=== PATIENT | male | born 1965 | race African-American/Black ===

== ENCOUNTER 2017-02-11 18:07 | Inpatient (IN) | payer SELFPAY ==
[~2017-02-11] VITALS: Ht 185.4 cm; Wt 63.6 kg
[~2017-02-11 18:07] MED LIST: HYDR25R PR
[2017-02-11 18:12] VITALS: BP 101/58; PULSE 106; RESP 20; TEMP 100.2; O2SAT 96
[2017-02-11 18:31] VITALS: BP 134/107; PULSE 97; RESP 22; O2SAT 98
[2017-02-11 18:44] VITALS: RESP 22; O2SAT 98
[2017-02-11 19:04] VITALS: BP 118/67; PULSE 94; RESP 18; O2SAT 100
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
[2017-02-11 19:49] LABS: AUTOMATED NEUTROPHIL # 9.6 TH/MM3 (1.8-7.7); BASOPHIL % 0.3 % (0.0-2.0); EOSINOPHIL # 0.1 TH/MM3 (0-0.4); EOSINOPHIL % 0.8 % (0.0-4.0); HEMATOCRIT 32.3 % (39.0-51.0); LYMPH % 12.8 % (9.0-44.0); LYMPHOCYTE # 1.6 TH/MM3 (1.0-4.8); MEAN CELL VOLUME 95.3 FL (80.0-100.0); MEAN CORPUSCULAR HEMOGLOBIN 31.8 PG (27.0-34.0); MEAN CORPUSCULAR HGB CONC 33.4 % (32.0-36.0); MONO % 8.8 % (0.0-8.0); NEUT % 77.3 % (16.0-70.0); PLATELET COUNT 530 TH/MM3 (150-450); RED BLOOD COUNT 3.39 MIL/MM3 (4.50-5.90); RED CELL DISTRIBUTION WIDTH 12.9 % (11.6-17.2); WHITE BLOOD COUNT 12.4 TH/MM3 (4.0-11.0)
[2017-02-11 19:50] LABS: HEMO FLAGS AUTO DIFF
[2017-02-11 20:14] LABS: BICARBONATE 25.4 MEQ/L (21.0-32.0); POTASSIUM 3.1 MEQ/L (3.5-5.1)
--- NOTE | 2017-02-11 20:40 | RADRPT ---
EXAM DATE/TIME: 02/11/2017 18:52 [facility] COMPARISON: No previous studies available for comparison. INDICATIONS : Chest pain for the past week. MEDICAL HISTORY : None. SURGICAL HISTORY : None. ENCOUNTER: Initial ACUITY: 1 week PAIN SCORE: 10/10 LOCATION: Bilateral chest FINDINGS: Areas of consolidation are noted involving the right upper lung and left mid and lower lung consisten t with probable pneumonia. Clinical correlation is recommended. Possible cavitation is noted within t he right upper lung field. The heart is normal. CONCLUSION: Areas of consolidation are noted involving the right upper lung and left mid and lower lung consisten t with probable pneumonia. Clinical correlation is recommended. Possible cavitation is noted within t he right upper lung field. El Thibodeaux MD on February 11, 2017 at 20:37 Board Certified Radiologist. This report was verified electronically.
[2017-02-11] MEDS ORDERED: PIPERACIL-TAZO 4.5 GM PREMIX 100 ML IV STA (20:42)
[2017-02-11] MEDS ORDERED: VANCOMYCIN INJ 1,000 MG in SODIUM CHLOR 0.9% 250 ML INJ 250 ML IV STA (20:42)
[2017-02-11] MEDS ORDERED: SODIUM CHLOR 0.9% 1000 ML INJ 1,000 ML IV ONE ×2 (20:45)
[2017-02-11] MEDS ORDERED: SODIUM CHLORIDE 0.9% FLUSH 10 ML FLUSH IV FLUSH PRN (21:15)
[2017-02-11] MEDS ORDERED: NALOXONE HCL 0.4 MG/ML AMP IV PUSH PRN (21:15)
[2017-02-11] MEDS ORDERED: OSELTAMIVIR PHOSPHATE 75 MG CAP PO ONE (21:15)
[2017-02-11] MEDS ORDERED: POTASSIUM CHLORIDE 20 MEQ PWD PACKET PO ONE (21:15)
[2017-02-11 21:18] LABS: BACTERIA, URINE RARE /hpf; BLOOD, URINE NEG (NEG); COMMENT (UR) CULT NOT INDICATED; CULTURE IF INDICATED CULT NOT INDICATED; GLUCOSE,URINE NEG (NEG); KETONE, URINE NEG (NEG); MUCUS URINE FEW /lpf (OCC); NITRITE,URINE NEG (NEG); SQUAMOUS EPITHELIAL CELL URINE <1 /hpf (0-5); URINE COLOR YELLOW (YELLW/STRAW)
[2017-02-11 21:22] LABS: BANDS 3 % (0-6); EOSINOPHILS 1 % (0-4); METAMYELOCYTES 1 % (0-1); MYELOCYTES 1 % (0-0); NEUTROPHIL # MANUAL DIFF 10.2 TH/MM3 (1.8-7.7); PLATELET ESTIMATE SMEAR HIGH (NORMAL); PLATELET MORPHOLOGY NORMAL (NORMAL); POLYS (SEG NEUTROPHILS) 77 % (16-70); SCAN/DIFF FINAL DIFF MANUAL; WBC DIFF SAMPLE 100
[2017-02-11 21:23] LABS: TOXIC GRANULATION 1+ (NORMAL); TOXIC VACUOLATION PRESENT (NONE SEEN)
--- NOTE | 2017-02-11 22:38 | EKG ---
Date Performed: 02/11/2017 Time Performed: 18:36:46 PTAGE: 51 years EKG: Sinus rhythm POSSIBLE LEFT ATRIAL ENLARGEMENT POSSIBLE LEFT VENTRICULAR HYPERTROPHY NONSPECIFIC T-WAVE ABNORMALIT Y ABNORMAL ECG NO PREVIOUS TRACING DOCTOR: Isabella Soria Interpretating Date/Time 02/11/2017 22:37:53
[2017-02-11 22:41] VITALS: O2SAT 98
[2017-02-11] MEDS: SODIUM CHLOR 0.9% 1000 ML INJ 1,000 ML IV SCH (22:41)
[2017-02-12] VITALS (9 sets, daily range): BP systolic 101–120; BP diastolic 56–78; PULSE 72–109; RESP 18–20; TEMP 97.8–100.3; O2SAT 92–97
[2017-02-12] MEDS: SODIUM CHLOR 0.9% 1000 ML INJ 1,000 ML IV SCH ×3 (01:00→21:14)
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
[2017-02-12] MEDS: ACETAMINOPHEN/HYDROcodone 325 MG/5 MG TAB PO PRN ×5 (02:11→21:14)
[2017-02-12] MEDS ORDERED: ACETAMINOPHEN 325 MG TAB PO PRN (04:15)
[2017-02-12 04:22] LABS: AUTOMATED NEUTROPHIL # 8.6 TH/MM3 (1.8-7.7); BASOPHIL % 0.2 % (0.0-2.0); EOSINOPHIL # 0.1 TH/MM3 (0-0.4); HEMATOCRIT 28.9 % (39.0-51.0); HEMO FLAGS DIFF FINAL; LYMPH % 11.9 % (9.0-44.0); LYMPHOCYTE # 1.4 TH/MM3 (1.0-4.8); MEAN CELL VOLUME 94.2 FL (80.0-100.0); MEAN CORPUSCULAR HEMOGLOBIN 33.3 PG (27.0-34.0); MEAN CORPUSCULAR HGB CONC 35.3 % (32.0-36.0); MONO % 10.9 % (0.0-8.0); PLATELET COUNT 467 TH/MM3 (150-450); RED BLOOD COUNT 3.07 MIL/MM3 (4.50-5.90); RED CELL DISTRIBUTION WIDTH 12.5 % (11.6-17.2); WHITE BLOOD COUNT 11.3 TH/MM3 (4.0-11.0)
[2017-02-12] MEDS ORDERED: LORazepam 2 MG/ML VIAL IV PUSH PRN (04:30)
[2017-02-12 04:33] LABS: BICARBONATE 23.5 MEQ/L (21.0-32.0)
[2017-02-12 04:45] LABS: CALCIUM-PROTEIN CORRECTED 7.8 MG/DL (8.5-10.1)
[2017-02-12] MEDS: SODIUM CHLORIDE 0.9% FLUSH 10 ML FLUSH IV FLUSH SCH ×2 (09:00→21:00)
[2017-02-12] MEDS: OSELTAMIVIR PHOSPHATE 75 MG CAP PO SCH ×2 (09:29→21:14)
--- NOTE | 2017-02-12 10:59 | HHI.PR ---
Subjective Remarks Follow-up for pneumonia, possible right lung cavitation. Patient is currently doing well. No fever or chills. He continues to have productive cough. Objective Vitals Vital Signs Date Time Temp Pulse Resp B/P (MAP) Pulse Ox O2 Delivery O2 Flow Rate FiO2 02/12/17 10:48 95 21 02/12/17 08:00 98.0 72 18 110/56 (74) 97 02/12/17 02:52 100.3 101 20 106/57 (73) 94 02/12/17 02:39 99.9 97 18 115/78 (90) 97 Nasal Cannula 02/12/17 00:34 98.9 100 18 106/59 (75) 96 Room Air 02/11/17 22:41 98 02/11/17 19:04 94 18 118/67 (84) 100 Room Air 02/11/17 18:44 22 98 Room Air 02/11/17 18:31 97 22 134/107 (116) 98 Room Air 02/11/17 18:31 96 22 98 Room Air 02/11/17 18:12 100.2 106 20 101/58 (72) 96 Room Air I/O 02/11/17 02/11/17 02/11/17 02/12/17 02/12/17 02/12/17 07:00 15:00 23:00 07:00 15:00 23:00 Intake Total 2100 ml 1250 ml 761 ml Output Total 710 ml Balance 2100 ml 1250 ml 51 ml Intake IV Total 2100 ml 1250 ml 761 ml Output Urine Total 710 ml # Voids 1 Result Diagram: 02/12/17 0350 02/12/17 0350 Imaging Last Impressions Chest X-Ray 02/11/17 1840 Signed Impressions: Service Date/Time: Saturday, February 11, 2017 18:52 - CONCLUSION: Areas of consolidation are noted involving the right upper lung and left mid and lower lung consistent with probable pneumonia. Clinical correlation is recommended. Possible cavitation is noted within the right upper lung field. El Thibodeaux MD Objective Remarks GENERAL: Alert, oriented 3, NAD. SKIN: Warm and dry. HEAD: Normocephalic. EYES: No scleral icterus. No injection or drainage. NECK: Supple, trachea midline. No JVD or lymphadenopathy. CARDIOVASCULAR: Regular rate and rhythm without murmurs, gallops, or rubs. RESPIRATORY: Moderate air entry. Diffuse coarse breath sounds. GASTROINTESTINAL: Abdomen soft, non-tender, nondistended. MUSCULOSKELETAL: No cyanosis, or edema. BACK: Nontender without obvious deformity. No CVA tenderness. Procedures None A/P Problem List: (1) Sepsis ICD Code: A41.9 - Sepsis, unspecified organism Status: Acute (2) Cavitary lesion of lung ICD Code: J98.4 - Other disorders of lung (3) Pneumonia ICD Code: J18.9 - Pneumonia, unspecified organism Assessment and Plan Mr. Fontaine is a 51-year-old male with no significant past medical history who presents to the emergency department on 02/12/2017 due to productive cough and pinkish phlegm production for about 1 week. He reported fever at home as well. Chest x-ray shows pneumonia as well as right lung cavitary lesion. - Bilateral pneumonia - Probable right lung cavitary lesion - Patient is currently on Zosyn and vancomycin. - Will add azithromycin by mouth for atypical coverage. - Sputum culture pending. TB Quatiferon test pending. - Continue isolation. - Will get CT chest with IV. TB PCR ordered. - Discussed with ID. - Influenza A positive - Continue Oseltamivir - D/C telemetry. Full code. Ambulation. SCDs. Problem Qualifiers (1) Sepsis: Qualified Codes: A41.9 - Sepsis, unspecified organism Miguel Preston DO Feb 12, 2017 10:59 am
--- NOTE | 2017-02-12 13:14 | PD.CONS ---
History of Present Illness Service Infectious disease Consult Requested By Dr Marques Gagnon Reason for Consult Evaluate patient with positive influenza testing, and cavitary pneumonia Primary Care Physician No Primary Care Physician Diagnoses: History of Present Illness Patient seen and examined. Records reviewed. Patient is a 51-year-old male, presented to the hospital complaining of 1-1/2 week history of cough, left-sided chest pain, and fever. He said he was bringing up initially some reddish phlegm, and now his phlegm is somewhat greenish color. He denies any significant shortness of breath. Denies any sore throat or ear pain. No nausea or vomiting or abdominal pain. He's got some body aches and some myalgias. Has not been around anyone sick. No exposure to birds. No exposure to any sick children. No recent travel. Since admission he has had fever. His chest x-ray showing bilateral infiltrates worse on the right with possible cavitary component. His influenza testing came back positive. Patient works doing [employer]. Patient was in [facility] for about 20 days and he was released in September. He stated that he's had previous TB skin testing that was negative. Denies any prior exposure to anyone with active tuberculosis. Rub in in person. Denies any IV drug use. Infectious disease consultation has been requested to evaluate the patient. Review of Systems Constitutional: COMPLAINS OF: Fever, Chills, Change in appetite, Night Sweats Eyes: DENIES: Eye pain Ears, nose, mouth, throat: DENIES: Nasal discharge, Oral lesions, Throat pain, Hoarseness, Ear Pain, Sinus Pain Respiratory: COMPLAINS OF: Cough, Sputum production, DENIES: Shortness of breath Cardiovascular: COMPLAINS OF: Chest pain, DENIES: Palpitations, Syncope, Dyspnea on Exertion Gastrointestinal: DENIES: Abdominal pain, Diarrhea, Nausea, Vomiting, Difficulty Swallowing Genitourinary: DENIES: Hematuria, Dysuria Musculoskeletal: COMPLAINS OF: Back pain, DENIES: Joint Swelling Integumentary: DENIES: Pruritus, Rash Hematologic/lymphatic: DENIES: Lymphadenopathy Immunologic/allergic: DENIES: Urticaria Neurologic: DENIES: Headache, Localized weakness Psychiatric: DENIES: Hallucinations Past Family Social History Allergies: Coded Allergies: No Known Allergies (Verified Allergy, Unknown, 02/11/17) 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 None Active Ordered Medications Current Medications Medications (Trade) Dose Ordered Sig/Carlos Eduardo Route Start Time Stop Time Status Last Admin (NS Flush) 2 ml UNSCH PRN IV FLUSH 02/11/17 21:15 (NS Flush) 2 ml BID IV FLUSH 02/12/17 09:00 02/12/17 09:00 (Narcan Inj) 0.4 mg UNSCH PRN IV PUSH 02/11/17 21:15 Sodium Chloride 1,000 ml @ 84 mls/hr [id number] IV 02/11/17 21:15 02/12/17 01:00 (Tamiflu) 75 mg BID PO 02/12/17 09:00 02/12/17 09:29 ([place] 5-325 Mg) 1 tab Q4H PRN PO 02/12/17 02:00 02/12/17 07:29 (Tylenol) 650 mg Q6HR PRN PO 02/12/17 04:15 (Ativan Inj) 1 mg Q4H PRN IV PUSH 02/12/17 04:30 Family History Hypertension Social History smokes about a pack a day drinks eoth about 5 beers a day, but has not drank since the pains started past one week but then stated last drink was 12 oclock yesterday marijuana denies iv da Physical Exam Vital Signs Vital Signs Date Time Temp Pulse Resp B/P (MAP) Pulse Ox O2 Delivery O2 Flow Rate FiO2 02/12/17 10:48 95 21 02/12/17 08:00 98.0 72 18 110/56 (74) 97 02/12/17 02:52 100.3 101 20 106/57 (73) 94 02/12/17 02:39 99.9 97 18 115/78 (90) 97 Nasal Cannula 02/12/17 00:34 98.9 100 18 106/59 (75) 96 Room Air 02/11/17 22:41 98 02/11/17 19:04 94 18 118/67 (84) 100 Room Air 02/11/17 18:44 22 98 Room Air 02/11/17 18:31 97 22 134/107 (116) 98 Room Air 02/11/17 18:31 96 22 98 Room Air 02/11/17 18:12 100.2 106 20 101/58 (72) 96 Room Air Physical Exam GENERAL: Patient is a thin, well-developed male, awake and alert, not in respiratory distress. SKIN: Warm and dry. No generalized rash, no ecchymoses and no evidence of embolic lesions. HEAD: Atraumatic. Normocephalic. No temporal wasting, or tenderness. EYES: [place] conjunctiva. No petechia or hemorrhage. Pupils equal, round and reactive to light. Extraocular movements full and intact. No scleral icterus. No injection or drainage. EARS, NOSE AND THROAT: Nose without bleeding or purulent nasal discharge. No sinus tenderness. Mucous membranes pink and moist. No oral lesions noted. No exudate. No oral thrush. Has poor dentition NECK: Trachea midline. Supple and not tender, no meningeal signs CARDIOVASCULAR: Regular rate and rhythm. No murmurs, rubs or gallops heard RESPIRATORY: Decreased breathe sounds whole R lung, rales, on L, no wheezing or rhonchi. ABDOMEN: Soft, flat, non-tender, nondistended. Bowel sounds present and normoactive. No guarding. No rebound. No organomegaly. EXTREMITIES: No clubbing, cyanosis, or edema.No joint effusion, has good ROM. No calf tenderness. Well perfused and warm. NEUROLOGICAL: Awake and alert. Cranial nerves grossly intact. Motor grossly within normal limits. PSYCHIATRIC: Normal affect, calm and cooperative. LINE: No evidence of infection Laboratory Laboratory Tests Test 02/11/17 19:00 02/11/17 20:55 02/12/17 03:50 White Blood Count 12.4 11.3 Red Blood Count 3.39 3.07 Hemoglobin 10.8 10.2 Hematocrit 32.3 28.9 Mean Corpuscular Volume 95.3 94.2 Mean Corpuscular Hemoglobin 31.8 33.3 Mean Corpuscular Hemoglobin Concent 33.4 35.3 Red Cell Distribution Width 12.9 12.5 Platelet Count 530 467 Mean Platelet Volume 8.4 8.4 Neutrophils (%) (Auto) 77.3 76.0 Lymphocytes (%) (Auto) 12.8 11.9 Monocytes (%) (Auto) 8.8 10.9 Eosinophils (%) (Auto) 0.8 1.0 Basophils (%) (Auto) 0.3 0.2 Neutrophils # (Auto) 9.6 8.6 Lymphocytes # (Auto) 1.6 1.4 Monocytes # (Auto) 1.1 1.2 Eosinophils # (Auto) 0.1 0.1 Basophils # (Auto) 0.0 0.0 CBC Comment AUTO DIFF DIFF FINAL Differential Total Cells Counted 100 Neutrophils % (Manual) 77 Band Neutrophils % 3 Lymphocytes % 9 Monocytes % 8 Eosinophils % 1 Neutrophils # (Manual) 10.2 Metamyelocytes 1 Myelocytes 1 Differential Comment FINAL DIFF MANUAL Toxic Granulation 1+ Toxic Vacuolation PRESENT Platelet Estimate HIGH Platelet Morphology Comment NORMAL Blood Urea Nitrogen 19 16 Creatinine 1.08 0.98 Random Glucose 105 100 Calcium Level 7.9 7.2 Sodium Level 124 129 Potassium Level 3.1 4.0 Chloride Level 88 98 Carbon Dioxide Level 25.4 23.5 Anion Gap 11 8 Estimat Glomerular Filtration Rate 87 98 Urine Color YELLOW Urine Turbidity CLEAR Urine pH 6.0 Urine Specific [place] 1.026 Urine Protein 30 Urine Glucose (UA) NEG Urine Ketones NEG Urine Occult Blood NEG Urine Nitrite NEG Urine Bilirubin NEG Urine Urobilinogen 2.0 Urine Leukocyte Esterase NEG Urine RBC 1 Urine WBC 3 Urine Squamous Epithelial Cells <1 Urine Bacteria RARE Urine Mucus FEW Microscopic Urinalysis Comment CULT NOT INDICATED Lactic Acid Level 1.2 Urine Opiates Screen NEG Urine Barbiturates Screen NEG Urine Amphetamines Screen NEG Urine Benzodiazepines Screen NEG Urine Cocaine Screen POS Urine Cannabinoids Screen POS Total Protein 6.0 Protein Corrected Calcium 7.8 Date/Time Source Procedure Growth Status 02/11/17 19:10 Blood Peripheral Aerobic Blood Culture - Preliminary NO GROWTH IN 1 DAY Resulted 02/11/17 19:10 Blood Peripheral Anaerobic Blood Culture - Preliminary NO GROWTH IN 1 DAY Resulted 02/12/17 10:30 Sputum Expectorated Sputum Gram Stain Pending Received 02/12/17 10:30 Sputum Expectorated Sputum Sputum Culture Pending Received 02/11/17 20:55 Urine Random Urine Legionella Antigen - Final PRESUMPTIVE NEGATIVE FOR LEGIONELLA P... Complete 02/11/17 20:55 Urine Random Urine Streptococcus pneumoniae Antigen (M - Final PRESUMPTIVE NEGATIVE FOR STREPTOCOCCU... Complete Result Diagram: 02/12/17 0350 02/12/17 0350 Imaging RADIOLOGY STUDIES/FILMS REVIEWED Last Impressions Chest X-Ray 02/11/17 1840 Signed Impressions: Service Date/Time: Saturday, February 11, 2017 18:52 - CONCLUSION: Areas of consolidation are noted involving the right upper lung and left mid and lower lung consistent with probable pneumonia. Clinical correlation is recommended. Possible cavitation is noted within the right upper lung field. El Thibodeaux MD Assessment and Plan Assessment and Plan IMPRESSION Influenza A (+) test, has fever, body aches and myalgia CAP, could have Staph aureus PNA post influenza - RUL location, concern with PTB - smoker, and drinks beer RECOMMENDATION 5 days Tamiflu Continue Zosyn Change Vanco to Zyvox Add Zithromax CT chest Sputum C/S Sputum for TB PCR Follow C/S Monitor progress HIV testing I will follow along with you Thank you for this consultation Discussed Condition With Explained plan to the patient D/W Dr Preston ([facility]AS) Irma Linn MD Feb 12, 2017 13:14
[2017-02-12] MEDS: AZITHROMYCIN 250 MG TAB PO SCH (14:23)
[2017-02-12] MEDS: PIPERACIL-TAZO 4.5 GM PREMIX 100 ML IV SCH ×2 (14:23→20:46)
[2017-02-12] MEDS: LINEZOLID 600 MG TAB PO SCH (20:46)
[2017-02-13] VITALS (7 sets, daily range): BP systolic 106–124; BP diastolic 56–72; PULSE 85–100; RESP 18; TEMP 98.4–99.2; O2SAT 92–98
[2017-02-13] MEDS: ACETAMINOPHEN/HYDROcodone 325 MG/5 MG TAB PO PRN ×6 (01:08→22:45)
[2017-02-13] MEDS ORDERED: IOHEXOL 350 MG/ML 10 ML VIAL (for RAD DIAG) IVCONTRAST ONE (02:08)
--- NOTE | 2017-02-13 02:14 | RADRPT ---
EXAM DATE/TIME: 02/13/2017 00:56 [facility] COMPARISON: CHEST SINGLE AP, February 11, 2017, 18:52. INDICATIONS : Shortness of breath.. Abnormal chest x-ray with bilateral areas of consolidation. There w as possible cavitation in the right upper lobe. IV CONTRAST: 75 cc Omnipaque 350 (iohexol) IV RADIATION DOSE: 3.39 CTDIvol (mGy) MEDICAL HISTORY : None SURGICAL HISTORY : None. ENCOUNTER: Initial ACUITY: 1 day PAIN SCALE: 5/10 LOCATION: Bilateral chest TECHNIQUE: Volumetric scanning of the chest was performed. Using automated exposure control and adjustment of t he mA and/or kV according to patient size, radiation dose was kept as low as reasonably achievable to obtain optimal diagnostic quality images. DICOM format image data is available electronically for review and comparison. Follow-up recommendations for detected pulmonary nodules are based at a minimum on nodule size and pa tient risk factors according to Fleischner Society Guidelines. FINDINGS: LUNGS: There is dense consolidation in the right upper and middle lobes with air bronchograms centrally and extending into the right middle lobe. There is a cavitary region in the right lung apex which measure s up to approximately 4.2 x 3.2 cm in diameter. There are additional areas of gas and/or cavitation n oted in the anterior lung apex as well as scattered in the areas of consolidation. There is also dens e consolidation in the left upper lobe and portions of the lingula. There is no cavitation in these r egions. There are several scattered noncalcified pulmonary nodules. The largest is in the right lower lobe on axial image #41 measures 2 x 1.8 cm. There are smaller nodular areas in the upper lobes. PLEURA: There are small bilateral pleural effusions. MEDIASTINUM: The heart and great vessels demonstrate no acute abnormality. There is no hilar lymphadenopathy. The re is no pericardial effusion. There is soft tissue prominence in the pretracheal region which is poo rly defined. There is a also abnormal masslike soft tissue in the anterior superior mediastinum this is best seen on axial image #29. AXILLAE: There is small bilateral axillary lymph nodes which are poorly defined and may be reactive. SKELETAL: Within normal limits for patient age. MISCELLANEOUS: The visualized upper abdominal organs demonstrate no acute abnormality. CONCLUSION: 1. Areas of dense consolidative opacity and infiltrate in both upper lobes, lingula and right middle lobe. There are areas of cavitation in the right upper lobe. Findings are nonspecific and could be se condary to pneumonia with areas of cavitation and necrosis. Fungal infection could have a similar chi earance. 2. Scattered noncalcified pulmonary nodules raising concern for possible metastatic disease with cavi tation. 3. Small bilateral pleural effusions. 4. Soft tissue prominence the pretracheal area and anterior superior mediastinum of concern for adeno ashley. which is not well-defined. Jesús Webb MD on February 13, 2017 at 2:04 Board Certified Radiologist. This report was verified electronically.
[2017-02-13] MEDS: PIPERACIL-TAZO 4.5 GM PREMIX 100 ML IV SCH ×3 (05:14→20:42)
--- NOTE | 2017-02-13 08:22 | HHI.PR ---
Subjective Remarks Follow-up for pneumonia, possible right lung cavitation. Patient is doing well. He continues to have chest pain and cough. No fever, chills. Ambulating well in the room. Currently on NC. Objective Vitals Vital Signs Date Time Temp Pulse Resp B/P (MAP) Pulse Ox O2 Delivery O2 Flow Rate FiO2 02/13/17 04:41 98.7 100 18 114/63 (80) 96 02/13/17 00:08 99.2 97 18 124/72 (89) 92 02/12/17 20:53 95 02/12/17 20:51 99.3 89 18 110/66 (81) 95 02/12/17 16:00 98.7 109 18 120/69 (86) 92 02/12/17 12:00 97.8 82 18 101/63 (76) 95 02/12/17 10:48 95 21 I/O 02/12/17 02/12/17 02/12/17 02/13/17 02/13/17 02/13/17 07:00 15:00 23:00 07:00 15:00 23:00 Intake Total 1250 ml 761 ml Output Total 710 ml Balance 1250 ml 51 ml Intake IV Total 1250 ml 761 ml Output Urine Total 710 ml # Voids 1 Result Diagram: 02/12/17 0350 02/12/17 0350 Imaging Last Impressions Chest CT 02/13/17 0000 Signed Impressions: Service Date/Time: February 00:56 - CONCLUSION: 1. Areas of dense consolidative opacity and infiltrate in both upper lobes, lingula and right middle lobe. There are areas of cavitation in the right upper lobe. Findings are nonspecific and could be secondary to pneumonia with areas of cavitation and necrosis. Fungal infection could have a similar appearance. 2. Scattered noncalcified pulmonary nodules raising concern for possible metastatic disease with cavitation. 3. Small bilateral pleural effusions. 4. Soft tissue prominence the pretracheal area and anterior superior mediastinum of concern for adenopathy. which is not well-defined. Jesús Webb MD Chest X-Ray 02/11/17 1840 Signed Impressions: Service Date/Time: Saturday, February 11, 2017 18:52 - CONCLUSION: Areas of consolidation are noted involving the right upper lung and left mid and lower lung consistent with probable pneumonia. Clinical correlation is recommended. Possible cavitation is noted within the right upper lung field. El Thibodeaux MD Objective Remarks GENERAL: Alert, oriented 3, NAD. SKIN: Warm and dry. HEAD: Normocephalic. EYES: No scleral icterus. No injection or drainage. NECK: Supple, trachea midline. No JVD or lymphadenopathy. CARDIOVASCULAR: Regular rate and rhythm without murmurs, gallops, or rubs. RESPIRATORY: Moderate air entry. Diffuse coarse breath sounds. Diminished breath sounds in both lung bethea. GASTROINTESTINAL: Abdomen soft, non-tender, nondistended. MUSCULOSKELETAL: No cyanosis, or edema. BACK: Nontender without obvious deformity. No CVA tenderness. Procedures None A/P Problem List: (1) Sepsis ICD Code: A41.9 - Sepsis, unspecified organism Status: Acute (2) Cavitary lesion of lung ICD Code: J98.4 - Other disorders of lung (3) Pneumonia ICD Code: J18.9 - Pneumonia, unspecified organism Assessment and Plan Mr. Fontaine is a 51-year-old male with no significant past medical history who presents to the emergency department on 02/12/2017 due to productive cough and pinkish phlegm production for about 1 week. He reported fever at home as well. Chest x-ray shows pneumonia as well as right lung cavitary lesion. - Bilateral pneumonia - Probable right lung cavitary lesion - Patient is currently on Zosyn and Linezolid and Azithromycin. - Continue isolation. - CT chest with IV shows dense consolidation in both lungs, cavitary lesion in the right lung. Images reviewed by me. - Follow sputum culture sensitivity, HIV screening test, TB PCR and Quantiferon test. - Influenza A positive - Continue Oseltamivir - Hyponatremia - Na 124 --> 129. Will check CBC, BMP in the AM. Full code. Ambulation. SCDs. Problem Qualifiers (1) Sepsis: Qualified Codes: A41.9 - Sepsis, unspecified organism Miguel Preston DO Feb 13, 2017 8:22 am
[2017-02-13] MEDS: OSELTAMIVIR PHOSPHATE 75 MG CAP PO SCH ×2 (09:00→20:43)
[2017-02-13] MEDS: LINEZOLID 600 MG TAB PO SCH ×2 (09:20→20:42)
[2017-02-13] MEDS: AZITHROMYCIN 250 MG TAB PO SCH (09:20)
--- NOTE | 2017-02-13 12:39 | HHI.IDPN ---
Subjective Subjective Remarks Patient is a 51-year-old male, presented to the hospital complaining of 1-1/2 week history of cough, left-sided chest pain, and fever. He said he was bringing up initially some reddish phlegm, and now his phlegm is somewhat greenish color. He denies any significant shortness of breath. Denies any sore throat or ear pain. No nausea or vomiting or abdominal pain. He's got some body aches and some myalgias. Has not been around anyone sick. No exposure to birds. No exposure to any sick children. No recent travel. Since admission he has had fever. His chest x-ray showing bilateral infiltrates worse on the right with possible cavitary component. His influenza testing came back positive. Patient works doing [employer]. Patient was in correction for about 20 days and he was released in September. He stated that he's had previous TB skin testing that was negative. Denies any prior exposure to anyone with active tuberculosis. Rub in in person. Denies any IV drug use. Infectious disease consultation has been requested to evaluate the patient. Notes reviewed Temps low grade Still with pain and cough CT chest noted HIV prelim (+), confirmatory pending Antibiotics Current medications Zosyn Zyvox Zithromax Tamiflu Medications (Trade) Dose Ordered Sig/Carlos Eduardo Route Start Time Stop Time Status Last Admin (NS Flush) 2 ml UNSCH PRN IV FLUSH 02/11/17 21:15 (NS Flush) 2 ml BID IV FLUSH 02/12/17 09:00 02/12/17 09:00 (Narcan Inj) 0.4 mg UNSCH PRN IV PUSH 02/11/17 21:15 Sodium Chloride 1,000 ml @ 84 mls/hr [id number] IV 02/11/17 21:15 02/12/17 09:10 (Tamiflu) 75 mg BID PO 02/12/17 09:00 02/13/17 09:00 ([place] 5-325 Mg) 1 tab Q4H PRN PO 02/12/17 02:00 02/13/17 10:06 (Tylenol) 650 mg Q6HR PRN PO 02/12/17 04:15 (Ativan Inj) 1 mg Q4H PRN IV PUSH 02/12/17 04:30 (Zithromax) 500 mg DAILY PO 02/12/17 14:00 02/13/17 09:20 (Zyvox) 600 mg Q12HR PO 02/12/17 21:00 02/13/17 09:20 Piperacillin Sod/ Tazobactam Sod 100 ml @ 200 mls/hr Q8H IV 02/12/17 14:00 02/13/17 05:14 Lines PIV Past Medical History Reviewed Allergies: Coded Allergies: No Known Allergies (Verified Allergy, Unknown, 02/11/17) Objective . Vital Signs Date Time Temp Pulse Resp B/P (MAP) Pulse Ox O2 Delivery O2 Flow Rate FiO2 02/13/17 09:02 98.5 91 18 112/56 (74) 96 02/13/17 04:41 98.7 100 18 114/63 (80) 96 02/13/17 00:08 99.2 97 18 124/72 (89) 92 02/12/17 20:53 95 02/12/17 20:51 99.3 89 18 110/66 (81) 95 02/12/17 16:00 98.7 109 18 120/69 (86) 92 . Laboratory Tests Test 02/11/17 19:00 02/12/17 03:50 White Blood Count 12.4 TH/MM3 11.3 TH/MM3 Red Blood Count 3.39 MIL/MM3 3.07 MIL/MM3 Hemoglobin 10.8 GM/DL 10.2 GM/DL Hematocrit 32.3 % 28.9 % Mean Corpuscular Volume 95.3 FL 94.2 FL Mean Corpuscular Hemoglobin 31.8 PG 33.3 PG Mean Corpuscular Hemoglobin Concent 33.4 % 35.3 % Red Cell Distribution Width 12.9 % 12.5 % Platelet Count 530 TH/MM3 467 TH/MM3 Mean Platelet Volume 8.4 FL 8.4 FL Neutrophils (%) (Auto) 77.3 % 76.0 % Lymphocytes (%) (Auto) 12.8 % 11.9 % Monocytes (%) (Auto) 8.8 % 10.9 % Eosinophils (%) (Auto) 0.8 % 1.0 % Basophils (%) (Auto) 0.3 % 0.2 % Neutrophils # (Auto) 9.6 TH/MM3 8.6 TH/MM3 Lymphocytes # (Auto) 1.6 TH/MM3 1.4 TH/MM3 Monocytes # (Auto) 1.1 TH/MM3 1.2 TH/MM3 Eosinophils # (Auto) 0.1 TH/MM3 0.1 TH/MM3 Basophils # (Auto) 0.0 TH/MM3 0.0 TH/MM3 CBC Comment AUTO DIFF DIFF FINAL Differential Total Cells Counted 100 Neutrophils % (Manual) 77 % Band Neutrophils % 3 % Lymphocytes % 9 % Monocytes % 8 % Eosinophils % 1 % Neutrophils # (Manual) 10.2 TH/MM3 Metamyelocytes 1 % Myelocytes 1 % Differential Comment FINAL DIFF MANUAL Toxic Granulation 1+ Toxic Vacuolation PRESENT Platelet Estimate HIGH Platelet Morphology Comment NORMAL Laboratory Tests Test 02/11/17 19:00 02/11/17 20:55 02/12/17 03:50 Blood Urea Nitrogen 19 MG/DL 16 MG/DL Creatinine 1.08 MG/DL 0.98 MG/DL Random Glucose 105 MG/DL 100 MG/DL Calcium Level 7.9 MG/DL 7.2 MG/DL Sodium Level 124 MEQ/L 129 MEQ/L Potassium Level 3.1 MEQ/L 4.0 MEQ/L Chloride Level 88 MEQ/L 98 MEQ/L Carbon Dioxide Level 25.4 MEQ/L 23.5 MEQ/L Anion Gap 11 MEQ/L 8 MEQ/L Estimat Glomerular Filtration Rate 87 ML/MIN 98 ML/MIN Lactic Acid Level 1.2 mmol/L Total Protein 6.0 GM/DL Protein Corrected Calcium 7.8 MG/DL Microbiology Date/Time Source Procedure Growth Status 02/11/17 19:10 Blood Peripheral Aerobic Blood Culture - Preliminary NO GROWTH IN 2 DAYS Resulted 02/11/17 19:10 Blood Peripheral Anaerobic Blood Culture - Preliminary NO GROWTH IN 2 DAYS Resulted 02/11/17 19:00 Blood Peripheral Aerobic Blood Culture - Preliminary NO GROWTH IN 2 DAYS Resulted 02/11/17 19:00 Blood Peripheral Anaerobic Blood Culture - Preliminary NO GROWTH IN 2 DAYS Resulted 02/12/17 10:30 Sputum Expectorated Sputum Gram Stain - Final Resulted 02/12/17 10:30 Sputum Expectorated Sputum Sputum Culture Pending Resulted 02/11/17 21:16 Throat Group A Streptococcus Screen - Preliminary NO BETA STREPTOCOCCI ISOLATED AT 24 H... Resulted 02/11/17 21:16 Throat Group A Streptococcus Screen (DEX) - Final Complete 02/11/17 19:00 Nasal Washing Influenza Types A,B Antigen (DEX) - Final Positive For Flu A Antigen Complete 02/11/17 20:55 Urine Random Urine Legionella Antigen - Final PRESUMPTIVE NEGATIVE FOR LEGIONELLA P... Complete 02/11/17 20:55 Urine Random Urine Streptococcus pneumoniae Antigen (M - Final PRESUMPTIVE NEGATIVE FOR STREPTOCOCCU... Complete Imaging Chest CT 02/13/17 0000 Signed Impressions: Service Date/Time: February 00:56 - CONCLUSION: 1. Areas of dense consolidative opacity and infiltrate in both upper lobes, lingula and right middle lobe. There are areas of cavitation in the right upper lobe. Findings are nonspecific and could be secondary to pneumonia with areas of cavitation and necrosis. Fungal infection could have a similar appearance. 2. Scattered noncalcified pulmonary nodules raising concern for possible metastatic disease with cavitation. 3. Small bilateral pleural effusions. 4. Soft tissue prominence the pretracheal area and anterior superior mediastinum of concern for adenopathy. which is not well-defined. Jesús Webb MD Chest X-Ray 02/11/17 1840 Signed Impressions: Service Date/Time: Saturday, February 11, 2017 18:52 - CONCLUSION: Areas of consolidation are noted involving the right upper lung and left mid and lower lung consistent with probable pneumonia. Clinical correlation is recommended. Possible cavitation is noted within the right upper lung field. El Thibodeaux MD Physical Exam GENERAL: awake and alert, not in respiratory distress. SKIN: Warm and dry. No generalized rash, no ecchymoses and no evidence of embolic lesions. HEAD: Atraumatic. Normocephalic. No temporal wasting, or tenderness. EYES: [place] conjunctiva. No petechia or hemorrhage. Pupils equal, round and reactive to light. Extraocular movements full and intact. No scleral icterus. EARS, NOSE AND THROAT: Nose without bleeding or purulent nasal discharge. No sinus tenderness. Mucous membranes pink and moist. No oral lesions noted. No exudate. No oral thrush. Has poor dentition NECK: Trachea midline. Supple and not tender, no meningeal signs CARDIOVASCULAR: Regular rate and rhythm. No murmurs, rubs or gallops heard RESPIRATORY: Decreased breathe sounds whole R lung, rales, on L, no wheezing or rhonchi. ABDOMEN: Soft, flat, non-tender, nondistended. Bowel sounds present and normoactive. No guarding. No rebound. No organomegaly. EXTREMITIES: No clubbing, cyanosis, or edema.No joint effusion, has good ROM. No calf tenderness. Well perfused and warm. NEUROLOGICAL: Awake and alert. Cranial nerves grossly intact. Motor grossly within normal limits. PSYCHIATRIC: Normal affect, calm and cooperative. LINE: No evidence of infection Assessment & Plan Remarks IMPRESSION Influenza A (+) test, has fever, body aches and myalgia CAP, could have Staph aureus PNA post influenza - RUL location, concern with PTB - smoker, and drinks beer Prelim HIV (+) - will inform of result once confirmatory result back RECOMMENDATION 5 days Tamiflu Continue Zosyn Continue Zyvox Continue Zithromax Follow C/S TB work-up Monitor progress Irma Linn MD Feb 13, 2017 12:39
[2017-02-13] MEDS: SODIUM CHLORIDE 0.9% FLUSH 10 ML FLUSH IV FLUSH SCH ×2 (20:49→22:44)
[2017-02-13] MEDS: SODIUM CHLOR 0.9% 1000 ML INJ 1,000 ML IV SCH (22:44)
[2017-02-14] VITALS (8 sets, daily range): BP systolic 102–127; BP diastolic 55–97; PULSE 78–118; RESP 17–22; TEMP 98–101.9; O2SAT 92–98
[2017-02-14] MEDS: ACETAMINOPHEN/HYDROcodone 325 MG/5 MG TAB PO PRN ×4 (05:06→20:23)
[2017-02-14] MEDS: PIPERACIL-TAZO 4.5 GM PREMIX 100 ML IV SCH ×2 (05:07→13:49)
[2017-02-14] MEDS: SODIUM CHLORIDE 0.9% FLUSH 10 ML FLUSH IV FLUSH SCH ×2 (09:00→20:23)
[2017-02-14] MEDS: LINEZOLID 600 MG TAB PO SCH ×2 (09:19→20:23)
[2017-02-14] MEDS: OSELTAMIVIR PHOSPHATE 75 MG CAP PO SCH ×2 (09:19→20:24)
[2017-02-14] MEDS: AZITHROMYCIN 250 MG TAB PO SCH (09:19)
[2017-02-14] MEDS: SODIUM CHLOR 0.9% 1000 ML INJ 1,000 ML IV SCH ×2 (11:40→20:23)
--- NOTE | 2017-02-14 13:41 | HHI.PR ---
Subjective Remarks Follow-up for pneumonia, right lung cavitation. Patient denies any fever or chills. He reports that his cough is also getting better. Objective Vitals Vital Signs Date Time Temp Pulse Resp B/P (MAP) Pulse Ox O2 Delivery O2 Flow Rate FiO2 02/14/17 12:00 98.3 78 18 112/60 (77) 93 02/14/17 10:37 95 21 02/14/17 08:00 98.1 87 18 102/59 (73) 95 02/14/17 04:00 101.9 118 17 127/67 (87) 92 02/14/17 00:00 98.8 103 22 103/55 (71) 92 02/13/17 21:55 93 02/13/17 20:00 98.4 93 18 118/59 (78) 95 02/13/17 16:00 98.9 85 18 114/57 (76) 98 I/O 02/13/17 02/13/17 02/13/17 02/14/17 02/14/17 02/14/17 07:00 15:00 23:00 07:00 15:00 23:00 Intake Total 1000 ml Output Total 700 ml 400 ml Balance -700 ml -400 ml 1000 ml Intake IV Total 1000 ml Output Urine Total 700 ml 400 ml Result Diagram: 02/12/17 0350 02/12/17 0350 Imaging Last Impressions Chest CT 02/13/17 0000 Signed Impressions: Service Date/Time: February 00:56 - CONCLUSION: 1. Areas of dense consolidative opacity and infiltrate in both upper lobes, lingula and right middle lobe. There are areas of cavitation in the right upper lobe. Findings are nonspecific and could be secondary to pneumonia with areas of cavitation and necrosis. Fungal infection could have a similar appearance. 2. Scattered noncalcified pulmonary nodules raising concern for possible metastatic disease with cavitation. 3. Small bilateral pleural effusions. 4. Soft tissue prominence the pretracheal area and anterior superior mediastinum of concern for adenopathy. which is not well-defined. Jesús Webb MD Chest X-Ray 02/11/17 1840 Signed Impressions: Service Date/Time: Saturday, February 11, 2017 18:52 - CONCLUSION: Areas of consolidation are noted involving the right upper lung and left mid and lower lung consistent with probable pneumonia. Clinical correlation is recommended. Possible cavitation is noted within the right upper lung field. El Thibodeaux MD Objective Remarks GENERAL: Alert, oriented 3, NAD. SKIN: Warm and dry. HEAD: Normocephalic. EYES: No scleral icterus. No injection or drainage. NECK: Supple, trachea midline. No JVD or lymphadenopathy. CARDIOVASCULAR: Regular rate and rhythm without murmurs, gallops, or rubs. RESPIRATORY: Moderate air entry. Diffuse coarse breath sounds. Diminished breath sounds in both lung bethea. GASTROINTESTINAL: Abdomen soft, non-tender, nondistended. MUSCULOSKELETAL: No cyanosis, or edema. BACK: Nontender without obvious deformity. No CVA tenderness. Procedures None A/P Problem List: (1) Sepsis ICD Code: A41.9 - Sepsis, unspecified organism Status: Acute (2) Cavitary lesion of lung ICD Code: J98.4 - Other disorders of lung (3) Pneumonia ICD Code: J18.9 - Pneumonia, unspecified organism Assessment and Plan Mr. Fontaine is a 51-year-old male with no significant past medical history who presents to the emergency department on 02/12/2017 due to productive cough and pinkish phlegm production for about 1 week. He reported fever at home as well. Chest x-ray shows pneumonia as well as right lung cavitary lesion. - Bilateral pneumonia - Probable right lung cavitary lesion - Patient is currently on Zosyn and Linezolid and Azithromycin. - Continue isolation. - CT chest with IV shows dense consolidation in both lungs, cavitary lesion in the right lung. - Follow sputum culture sensitivity, HIV screening test, TB PCR and Quantiferon test. - Discussed with microbiology on 02/14/2017. We'll send another sputum sample for MTB PCR. - If MTB PCR is negative, we can potential he treat patient's infection outpatient on oral antibiotics. - Influenza A positive - Continue Oseltamivir - Hyponatremia - Na 124 --> 129. Will check CBC, BMP in the AM. Full code. Ambulation. SCDs. Problem Qualifiers (1) Sepsis: Qualified Codes: A41.9 - Sepsis, unspecified organism Miguel Preston DO Feb 14, 2017 1:41 pm
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
[2017-02-14] MEDS ORDERED: FAMOTIDINE 20 MG TAB PO ONE (15:30)
[2017-02-14] MEDS: LEVOFLOXACIN 750 MG TAB PO SCH (15:47)
[2017-02-14 17:18] LABS: M. TUBERCULOSIS PCR NOT DETECTED (NOT DETECT)
[2017-02-14 19:28] LABS: MITOGEN MINUS NIL RESULT 0.09 IU/mL; NIL RESULT 0.03 IU/mL; QUANTIFERON TB GOLD RESULT Indeterminate (Negative)
[2017-02-14] MEDS: FAMOTIDINE 20 MG TAB PO SCH (20:23)
[2017-02-14 23:24] LABS: HIV 1 AB DIFFERENTIATION Positive (Negative); HIV 1/2 AG AND AB SCREEN Reactive (Negative); HIV 2 AB DIFFERENTIATION Negative (Negative)
[2017-02-15] VITALS (7 sets, daily range): BP systolic 112–125; BP diastolic 56–68; PULSE 87–107; RESP 19–24; TEMP 97.4–98.7; O2SAT 63–97
[2017-02-15] MEDS: ACETAMINOPHEN/HYDROcodone 325 MG/5 MG TAB PO PRN ×3 (00:48→22:48)
[2017-02-15] MEDS: SODIUM CHLOR 0.9% 1000 ML INJ 1,000 ML IV SCH ×2 (05:47→17:27)
[2017-02-15] MEDS: SODIUM CHLORIDE 0.9% FLUSH 10 ML FLUSH IV FLUSH SCH ×2 (08:06→22:49)
[2017-02-15] MEDS: NICOTINE 14 MG/24 HR PATCH T-DERMAL SCH (08:06)
[2017-02-15] MEDS: LINEZOLID 600 MG TAB PO SCH ×2 (08:06→22:48)
[2017-02-15] MEDS: REMOVE OLD PATCH T-DERMAL SCH (08:07)
[2017-02-15] MEDS: OSELTAMIVIR PHOSPHATE 75 MG CAP PO SCH ×2 (08:07→22:49)
[2017-02-15] MEDS: FAMOTIDINE 20 MG TAB PO SCH ×2 (08:07→22:47)
[2017-02-15] MEDS: LEVOFLOXACIN 750 MG TAB PO SCH (08:07)
[2017-02-15 08:57] LABS: AUTOMATED NEUTROPHIL # 9.6 TH/MM3 (1.8-7.7); BASOPHIL % 0.4 % (0.0-2.0); EOSINOPHIL # 0.1 TH/MM3 (0-0.4); EOSINOPHIL % 0.9 % (0.0-4.0); HEMO FLAGS DIFF FINAL; LYMPH % 12.1 % (9.0-44.0); LYMPHOCYTE # 1.4 TH/MM3 (1.0-4.8); MEAN CELL VOLUME 94.6 FL (80.0-100.0); MEAN CORPUSCULAR HEMOGLOBIN 31.8 PG (27.0-34.0); MEAN CORPUSCULAR HGB CONC 33.6 % (32.0-36.0); MONO % 6.6 % (0.0-8.0); PLATELET COUNT 478 TH/MM3 (150-450); RED BLOOD COUNT 3.17 MIL/MM3 (4.50-5.90); RED CELL DISTRIBUTION WIDTH 12.8 % (11.6-17.2)
[2017-02-15 09:32] LABS: BICARBONATE 26.1 MEQ/L (21.0-32.0); POTASSIUM 3.5 MEQ/L (3.5-5.1)
--- NOTE | 2017-02-15 14:16 | HHI.PR ---
Subjective Remarks Follow-up for pneumonia, right lung cavitation, HIV. Patient is currently doing well. He is not coughing as much. No fever or chills. Inquires about when he can go home. Objective Vitals Vital Signs Date Time Temp Pulse Resp B/P (MAP) Pulse Ox O2 Delivery O2 Flow Rate FiO2 02/15/17 12:00 97.4 87 21 114/67 (83) 97 02/15/17 09:23 89 02/15/17 08:00 98.6 92 22 116/68 (84) 95 02/15/17 06:21 98.7 90 21 114/56 (75) 96 02/15/17 00:00 98.2 101 24 112/63 (79) 63 02/15/17 00:00 105 02/14/17 20:00 89 02/14/17 20:00 98.1 82 17 117/69 (85) 98 02/14/17 18:19 97 21 02/14/17 16:00 98.0 81 18 118/97 (104) 97 I/O 02/14/17 02/14/17 02/14/17 02/15/17 02/15/17 02/15/17 07:00 15:00 23:00 07:00 15:00 23:00 Intake Total 1000 ml 1360 ml Output Total 400 ml 650 ml 200 ml Balance -400 ml 1000 ml -650 ml 1360 ml -200 ml Intake Oral 360 ml IV Total 1000 ml 1000 ml Output Urine Total 400 ml 650 ml 200 ml # Bowel Movements 1 0 Result Diagram: 02/15/17 0833 02/15/17 0833 Imaging Last Impressions Chest CT 02/13/17 0000 Signed Impressions: Service Date/Time: February 00:56 - CONCLUSION: 1. Areas of dense consolidative opacity and infiltrate in both upper lobes, lingula and right middle lobe. There are areas of cavitation in the right upper lobe. Findings are nonspecific and could be secondary to pneumonia with areas of cavitation and necrosis. Fungal infection could have a similar appearance. 2. Scattered noncalcified pulmonary nodules raising concern for possible metastatic disease with cavitation. 3. Small bilateral pleural effusions. 4. Soft tissue prominence the pretracheal area and anterior superior mediastinum of concern for adenopathy. which is not well-defined. Jesús Webb MD Chest X-Ray 02/11/17 2450 Signed Impressions: Service Date/Time: Saturday, February 11, 2017 18:52 - CONCLUSION: Areas of consolidation are noted involving the right upper lung and left mid and lower lung consistent with probable pneumonia. Clinical correlation is recommended. Possible cavitation is noted within the right upper lung field. El Thibodeaux MD Objective Remarks GENERAL: Alert, oriented 3, NAD. SKIN: Warm and dry. HEAD: Normocephalic. EYES: No scleral icterus. No injection or drainage. NECK: Supple, trachea midline. No JVD or lymphadenopathy. CARDIOVASCULAR: Regular rate and rhythm without murmurs, gallops, or rubs. RESPIRATORY: Moderate air entry. Diffuse coarse breath sounds. Diminished breath sounds in both lung bethea. GASTROINTESTINAL: Abdomen soft, non-tender, nondistended. MUSCULOSKELETAL: No cyanosis, or edema. BACK: Nontender without obvious deformity. No CVA tenderness. Procedures None A/P Problem List: (1) Sepsis ICD Code: A41.9 - Sepsis, unspecified organism Status: Acute (2) Cavitary lesion of lung ICD Code: J98.4 - Other disorders of lung (3) Pneumonia ICD Code: J18.9 - Pneumonia, unspecified organism Assessment and Plan Mr. Fontaine is a 51-year-old male with no significant past medical history who presents to the emergency department on 02/12/2017 due to productive cough and pinkish phlegm production for about 1 week. He reported fever at home as well. Chest x-ray shows pneumonia as well as right lung cavitary lesion. - Bilateral pneumonia - Probable right lung cavitary lesion - HIV-1 infection. - Patient is currently Levaquin and Zyvox - Continue isolation. MTB PCR is negative as well as negative Gram stain of AFB. If okay with infectious disease we can stop droplet precaution. - CT chest with IV shows dense consolidation in both lungs, cavitary lesion in the right lung. - MTB PCR negative, HIV-1 positive, AFB Gram stain negative. - CD4 count pending. - Influenza A positive - Continue Oseltamivir - Hyponatremia - Na 124 --> 129. Full code. Ambulation. SCDs. Problem Qualifiers (1) Sepsis: Qualified Codes: A41.9 - Sepsis, unspecified organism Miguel Preston DO Feb 15, 2017 2:16 pm
[2017-02-15] MEDS ORDERED: ZOLPIDEM TARTRATE 10 MG TAB PO PRN (21:15)
[2017-02-16 00:15] VITALS: BP 113/64; PULSE 97; RESP 18; TEMP 99; O2SAT 95
[2017-02-16] MEDS: SODIUM CHLOR 0.9% 1000 ML INJ 1,000 ML IV SCH (04:54)
[2017-02-16] MEDS: ACETAMINOPHEN/HYDROcodone 325 MG/5 MG TAB PO PRN (04:56)
[2017-02-16 05:19] VITALS: BP 115/68; PULSE 87; RESP 20; TEMP 98.1; O2SAT 97
[2017-02-16 08:00] VITALS: BP 112/64; PULSE 71; RESP 22; TEMP 98; O2SAT 97
[2017-02-16] MEDS: NICOTINE 14 MG/24 HR PATCH T-DERMAL SCH (09:00)
[2017-02-16] MEDS: OSELTAMIVIR PHOSPHATE 75 MG CAP PO SCH (09:00)
[2017-02-16] MEDS: SODIUM CHLORIDE 0.9% FLUSH 10 ML FLUSH IV FLUSH SCH (09:00)
[2017-02-16] MEDS: REMOVE OLD PATCH T-DERMAL SCH (09:00)
[2017-02-16] MEDS: LINEZOLID 600 MG TAB PO SCH (09:31)
[2017-02-16] MEDS: FAMOTIDINE 20 MG TAB PO SCH (09:33)
[2017-02-16] MEDS: LEVOFLOXACIN 750 MG TAB PO SCH (09:33)
[2017-02-16] MEDS ORDERED: LEVA750T9 PO (10:55)
[2017-02-16] MEDS ORDERED: ZYVO600T PO (10:55)
== END 2017-02-16 11:50 | disposition home or self-care (01) | DRG 871 ==
LOC: NEPC 18:07 → NEDA 21:16 → N05A 02-12 02:37
PROVIDERS: ADMIT Hospitalist; ATTEND Hospitalist
DX: A41.02 Sepsis due to Methicillin resistant Staphylococcus aureus (principal); J10.08 Influenza due to other identified influenza virus with other specified pneumonia; E87.1 Hypo-osmolality and hyponatremia; J98.4 Other disorders of lung; F17.210 Nicotine dependence, cigarettes, uncomplicated; E87.6 Hypokalemia; R75 Inconclusive laboratory evidence of human immunodeficiency virus [HIV]; M79.1 Myalgia; B95.62 Methicillin resistant Staphylococcus aureus infection as the cause of diseases classified elsewhere
CPT/HCPCS: 71010; 71260; 76937; 80048; 80307; 81001; 83605; 84155; 85007; 85025; 85027; 86403; 86480; 86701; 86702; 86703; 87015; 87040; 87070; 87081; 87116; 87147; 87186; 87205; 87206; 87449; 87556; 87798; 87804; 87880; 93005; 96374; J2543; J3370; J7030; J7050; Q9967

== ENCOUNTER 2017-02-19 11:03 | Inpatient (IN) | payer SELFPAY ==
[2017-02-19] VITALS (7 sets, daily range): BP systolic 110–134; BP diastolic 58–78; PULSE 73–105; RESP 16–20; TEMP 97.9–98.7; O2SAT 95–98
[~2017-02-19] VITALS: Ht 185.4 cm; Wt 65.1 kg
[~2017-02-19 11:03] MED LIST changes: -HYDR25R PR; +LEVA750T9 PO; +ZYVO600T PO
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
[2017-02-19 11:51] LABS: AUTOMATED NEUTROPHIL # 6.9 TH/MM3 (1.8-7.7); BASOPHIL # 0.1 TH/MM3 (0-0.2); BASOPHIL % 0.6 % (0.0-2.0); EOSINOPHIL # 0.1 TH/MM3 (0-0.4); EOSINOPHIL % 1.6 % (0.0-4.0); HEMATOCRIT 28.6 % (39.0-51.0); HEMO FLAGS DIFF FINAL; LYMPH % 18.6 % (9.0-44.0); LYMPHOCYTE # 1.7 TH/MM3 (1.0-4.8); MEAN CELL VOLUME 95.5 FL (80.0-100.0); MEAN CORPUSCULAR HEMOGLOBIN 33.1 PG (27.0-34.0); MEAN CORPUSCULAR HGB CONC 34.7 % (32.0-36.0); MONO % 5.9 % (0.0-8.0); NEUT % 73.3 % (16.0-70.0); PLATELET COUNT 473 TH/MM3 (150-450); RED CELL DISTRIBUTION WIDTH 12.4 % (11.6-17.2); WHITE BLOOD COUNT 9.4 TH/MM3 (4.0-11.0)
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
[2017-02-19 12:17] LABS: BICARBONATE 25.9 MEQ/L (21.0-32.0); MAGNESIUM 1.9 MG/DL (1.5-2.5); POTASSIUM 3.7 MEQ/L (3.5-5.1)
[2017-02-19] MEDS ORDERED: LEVOFLOXACIN 500 MG PREMIX INJ 100 ML IV ONE (12:45)
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
[2017-02-19] MEDS ORDERED: SODIUM CHLORIDE 0.9% FLUSH 10 ML FLUSH IV FLUSH PRN (13:15)
[2017-02-19] MEDS ORDERED: NALOXONE HCL 0.4 MG/ML AMP IV PUSH PRN (13:15)
[2017-02-19] MEDS ORDERED: LINEZOLID 600 MG PREMIX 300 ML IV SCH (13:15)
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
[2017-02-19] MEDS ORDERED: IOHEXOL 350 MG/ML 10 ML VIAL (for RAD DIAG) IVCONTRAST ONE (16:48)
--- NOTE | 2017-02-19 17:15 | RADRPT ---
EXAM DATE/TIME: 02/19/2017 16:46 [place] COMPARISON: No previous studies available for comparison. INDICATIONS : Short of breath, evaluate pneumonia. IV CONTRAST: 73 cc Omnipaque 350 (iohexol) IV RADIATION DOSE: 23.36 CTDIvol (mGy) MEDICAL HISTORY : None SURGICAL HISTORY : None. ENCOUNTER: Initial ACUITY: 1 day PAIN SCALE: 5/10 LOCATION: Bilateral chest TECHNIQUE: Volumetric scanning of the chest was performed using a pulmonary embolism protocol MIP images were re constructed. Using automated exposure control and adjustment of the mA and/or kV according to patien t size, radiation dose was kept as low as reasonably achievable to obtain optimal diagnostic quality images. DICOM format image data is available electronically for review and comparison. Follow-up recommendations for detected pulmonary nodules are based at a minimum on nodule size and pa tient risk factors according to Fleischner Society Guidelines. FINDINGS: PULMONARY ARTERIES: No filling defects are seen in the pulmonary arteries through the segmental level. LUNGS: Dense consolidating airspace disease identified in both lobes. There is near total consolidation of t he right upper lobe. Air bronchograms with peripheral dilatation of the bronchial tree is noted. Larg e cystic areas developing within the right apex measuring 3.6 cm. Significant septal thickening with small cysts are identified throughout the left upper lobe. Early peribronchial disease identified centrally within the right lower lobe. PLEURAE: There is no pleural thickening or pleural effusion. MEDIASTINUM: There is good visualization of the great vessels of the middle mediastinum. No evidence of mediastin al or hilar adenopathy/mass. MUSCULOSKELETAL: Within normal limits for patient age. MISCELLANEOUS: The visualized upper abdominal organs demonstrate no acute abnormality. CONCLUSION: 1. No evidence of pulmonary embolism 2. Extensive consolidating airspace disease in both upper lobes with underlying airway disease. 3. 3.6 cm cavity has developed within the right upper lobe. 4. Early peribronchial disease in the right lower lobe. Ramon Hooper MD on February 19, 2017 at 17:09 Board Certified Radiologist. This report was verified electronically.
[2017-02-19] MEDS ORDERED: LORazepam 2 MG TAB PO PRN (19:56)
[2017-02-19] MEDS ORDERED: LORazepam 1 MG TAB PO PRN (20:00)
[2017-02-19] MEDS ORDERED: FLUMAZENIL 0.5 MG/5 ML VIAL IV PUSH PRN (20:00)
[2017-02-19] MEDS ORDERED: ACETAMINOPHEN/HYDROcodone 325 MG/5 MG TAB PO PRN (20:15)
[2017-02-19] MEDS ORDERED: LORAZEPAM 2 MG/ML IV PRN ×3 (20:45→21:00)
[2017-02-19] MEDS: LINEZOLID 600 MG TAB PO SCH (21:28)
[2017-02-19] MEDS: SODIUM CHLORIDE 0.9% FLUSH 10 ML FLUSH IV FLUSH SCH (21:28)
[2017-02-20 03:42] LABS: C. DIFF EPI 027 PRESUMPTIVE NEGATIVE (NEGATIVE)
[2017-02-20 04:45] VITALS: PULSE 83
[2017-02-20 05:04] VITALS: BP 120/74; PULSE 80; RESP 16; TEMP 97.5; O2SAT 96
[2017-02-20 07:00] LABS: AUTOMATED NEUTROPHIL # 4.8 TH/MM3 (1.8-7.7); BASOPHIL % 0.6 % (0.0-2.0); EOSINOPHIL # 0.3 TH/MM3 (0-0.4); EOSINOPHIL % 3.9 % (0.0-4.0); HEMATOCRIT 26.8 % (39.0-51.0); HEMO FLAGS DIFF FINAL; LYMPH % 19.3 % (9.0-44.0); LYMPHOCYTE # 1.3 TH/MM3 (1.0-4.8); MEAN CELL VOLUME 95.2 FL (80.0-100.0); MEAN CORPUSCULAR HEMOGLOBIN 32.9 PG (27.0-34.0); MEAN CORPUSCULAR HGB CONC 34.6 % (32.0-36.0); MONO % 6.4 % (0.0-8.0); NEUT % 69.8 % (16.0-70.0); PLATELET COUNT 437 TH/MM3 (150-450); RED BLOOD COUNT 2.81 MIL/MM3 (4.50-5.90); RED CELL DISTRIBUTION WIDTH 12.8 % (11.6-17.2); WHITE BLOOD COUNT 6.9 TH/MM3 (4.0-11.0)
[2017-02-20 07:21] LABS: BICARBONATE 25.5 MEQ/L (21.0-32.0)
[2017-02-20 08:00] VITALS: BP 119/77; PULSE 68; RESP 20; TEMP 97.6; O2SAT 97
[2017-02-20] MEDS ORDERED: ENOXAPARIN SODIUM 60 MG/0.6 ML SYRINGE SQ SCH (09:00)
[2017-02-20] MEDS: THIAMINE HCL 100 MG TAB PO SCH (09:40)
[2017-02-20] MEDS: MULTIVITAMINS/MINERALS THERAPEUTIC TAB PO SCH (09:40)
[2017-02-20] MEDS: FOLIC ACID 1 MG TAB PO SCH (09:40)
[2017-02-20] MEDS: LINEZOLID 600 MG TAB PO SCH ×2 (09:40→20:56)
[2017-02-20] MEDS ORDERED: PNEUMOCOCCAL POLYVALENT INJ 25 MCG/0.5 ML SYR IM ONE (10:00)
[2017-02-20] MEDS ORDERED: INFLUENZA VIRUS VACCINE (QUADRIVALENT) 0.5 ML SYR IM ONE (10:00)
--- NOTE | 2017-02-20 11:57 | HHI.PR ---
Subjective Remarks Follow-up pneumonia, HIV. The patient states that he feels okay at this time. He does have chest pain associated with cough. He states that his cough is nonproductive. Objective Vitals Vital Signs Date Time Temp Pulse Resp B/P (MAP) Pulse Ox O2 Delivery O2 Flow Rate FiO2 02/20/17 08:00 97.6 68 20 119/77 (91) 97 02/20/17 05:04 97.5 80 16 120/74 (89) 96 02/20/17 04:45 83 02/20/17 04:00 Room Air 02/20/17 00:00 Room Air 02/19/17 23:51 73 02/19/17 20:52 77 02/19/17 20:00 98.7 89 16 116/58 (77) 97 02/19/17 20:00 Room Air 02/19/17 16:11 97.9 93 18 134/73 (93) 98 02/19/17 15:05 74 18 118/78 (91) 97 I/O 02/19/17 02/19/17 02/19/17 02/20/17 02/20/17 02/20/17 07:00 15:00 23:00 07:00 15:00 23:00 Intake Total 360 ml Balance 360 ml Intake Oral 360 ml # Voids 1 2 # Bowel Movements 1 Result Diagram: 02/20/17 0550 02/20/17 0550 Imaging Last Impressions Chest X-Ray 02/19/17 1131 Signed Impressions: Service Date/Time: Sunday, February 19, 2017 12:28 - CONCLUSION: Persistent bilateral airspace disease with no significant improvement. Ramon Hooper MD Lower Extremity Ultrasound 02/19/17 0000 Signed Impressions: Service Date/Time: Sunday, February 19, 2017 11:37 - CONCLUSION: 1. No evidence of deep venous thrombosis within the lower extremities. 2. Nonspecific bilateral inguinal lymphadenopathy. El Thibodeaux MD CT Angiography 02/19/17 0000 Signed Impressions: Service Date/Time: Sunday, February 19, 2017 16:46 - CONCLUSION: 1. No evidence of pulmonary embolism 2. Extensive consolidating airspace disease in both upper lobes with underlying airway disease. 3. 3.6 cm cavity has developed within the right upper lobe. 4. Early peribronchial disease in the right lower lobe. Ramon Hooper MD Objective Remarks General: No acute distress. Heart: Regular rate and rhythm. No murmur. Lungs: Clear to auscultation bilaterally. No wheezes, rales, or rhonchi. Breathing is nonlabored. Abdomen: Soft, nontender, nondistended. Extremities: Trace to 1+ bilateral lower extremity edema. Psych: Alert and oriented. Procedures None Urinary Catheter: No Vascular Central Line Catheter: No A/P Assessment and Plan 1. Pneumonia with right lung cavitary lesion: Patient was noncompliant with outpatient antibiotics. Infectious disease reconsult in. Antibiotics restarted. Supplemental oxygen as needed. 2. Bilateral lower extremity edema: Echocardiogram ordered. CTA shows no evidence of pulmonary embolus. Lower extremity ultrasound was negative for DVT. 3. DVT prophylaxis: Lovenox. Discharge Planning The patient will need assistance with antibiotics upon discharge. Case management to assist with discharge planning. Nick Fermin MD Feb 20, 2017 11:57
[2017-02-20 12:00] VITALS: BP 110/66; PULSE 79; RESP 20; TEMP 98.3; O2SAT 98
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
--- NOTE | 2017-02-20 13:59 | EKG ---
Date Performed: 02/19/2017 Time Performed: 12:25:42 PTAGE: 51 years EKG: Sinus rhythm POSSIBLE LEFT ATRIAL ENLARGEMENT POSSIBLE RIGHT VENTRICULAR CONDUCTION DELAY BORDERLINE ECG Compared to prior tracing no significant change PREVIOUS TRACING : 02/11/2017 18.36 DOCTOR: Suzanna Faust Interpretating Date/Time 02/20/2017 13:58:27
[2017-02-20 16:00] VITALS: BP 122/73; PULSE 81; RESP 20; TEMP 97.3; O2SAT 98
[2017-02-20] MEDS: DOXYCYCLINE HYCLATE 100 MG TAB PO SCH ×2 (16:02→20:56)
[2017-02-20] MEDS: LEVOFLOXACIN 750 MG PREMIX INJ 150 ML IV SCH (18:28)
[2017-02-20 20:00] VITALS: BP 115/58; PULSE 90; PULSE 95; RESP 19; TEMP 98; O2SAT 96
[2017-02-20] MEDS ORDERED: DEXT 5%-NACL 0.45% 1000 ML INJ 1,000 ML IV SCH (20:00)
[2017-02-20 20:25] LABS: BASOPHIL # 0.1 TH/MM3 (0-0.2); BASOPHIL % 1.2 % (0.0-2.0); EOSINOPHIL # 0.3 TH/MM3 (0-0.4); EOSINOPHIL % 4.2 % (0.0-4.0); HEMATOCRIT 26.1 % (39.0-51.0); HEMO FLAGS DIFF FINAL; LYMPH % 25.8 % (9.0-44.0); LYMPHOCYTE # 1.7 TH/MM3 (1.0-4.8); MEAN CELL VOLUME 94.5 FL (80.0-100.0); MEAN CORPUSCULAR HEMOGLOBIN 32.2 PG (27.0-34.0); MEAN CORPUSCULAR HGB CONC 34.1 % (32.0-36.0); MONO % 6.4 % (0.0-8.0); NEUT % 62.4 % (16.0-70.0); PLATELET COUNT 450 TH/MM3 (150-450); RED BLOOD COUNT 2.76 MIL/MM3 (4.50-5.90); RED CELL DISTRIBUTION WIDTH 12.7 % (11.6-17.2); WHITE BLOOD COUNT 6.4 TH/MM3 (4.0-11.0)
[2017-02-20 20:34] LABS: APTT (PATIENT) 29.6 SEC (24.3-30.1); PROTHROMBIN TIME - PATIENT 10.5 SEC (9.8-11.6)
[2017-02-20] MEDS: SODIUM CHLORIDE 0.9% FLUSH 10 ML FLUSH IV FLUSH SCH (20:55)
[2017-02-20] MEDS: SULFAMETHOXAZOLE-TRIMETHOPRIM DS 800-160 MG TAB PO SCH (20:56)
[2017-02-20] MEDS ORDERED: POVIDONE IODINE 5% (ANTISEPSIS KIT) 4 APPLICATIONS EACH NARE PRN (23:45)
[2017-02-20] MEDS ORDERED: LACTATED RINGER'S 1000 ML IV PRN (23:45)
[2017-02-20] MEDS ORDERED: CHLORHEXIDINE GLUCONATE 2 % 1 PACK (2 CLOTHS) TOPICAL PRN (23:45)
[2017-02-20] MEDS ORDERED: SODIUM CHLORID 0.9% 500 ML IV PRN (23:45)
[2017-02-20] MEDS: ZOLPIDEM TARTRATE 5 MG TAB PO PRN (23:47)
[2017-02-21] VITALS (8 sets, daily range): BP systolic 91–116; BP diastolic 55–73; PULSE 70–93; RESP 16–21; TEMP 97.8–98.4; O2SAT 94–99
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
[2017-02-21 08:03] LABS: TOTAL BILIRUBIN ADULT 0.1 MG/DL (0.2-1.0)
[2017-02-21] MEDS: SODIUM CHLORIDE 0.9% FLUSH 10 ML FLUSH IV FLUSH SCH ×2 (09:00→21:45)
--- NOTE | 2017-02-21 09:19 | HHI.IDPN ---
Subjective Subjective Remarks Patient is a 51-year-old male, who was recently hospitalized February 11 to February 16, and at that time he was found to have a bilateral pneumonia, as well as cavitary pneumonia in the right upper lobe. He tested influenza A+ at that time as well, and the sputum culture grew MRSA. QuantiFERON testing was indeterminate, and TB PCR came back negative. He also had a sputum for AFB that came back negative. He was having fever, cough, and left-sided pleuritic chest pain. Patient improved, and he was discharge on February 16. He was given Levaquin and Zyvox, but apparently the patient could not afford the medication, and never filled the prescription. He was given a coupon for $1 to be able to get the Zyvox, but the patient stated that none of the pharmacy could give it to him. His symptoms were actually improving, and his fevers improved. He is still coughing, but sputum production has improved. Denies any hemoptysis, and he still has some occasional pleuritic chest pain. Patient developed swelling in both lower extremity, so he presented back to the hospital for further evaluation and treatment. Patient has been afebrile. He had a CTA which did not show any pulmonary embolism, but did confirm the presence of bilateral infiltrates as well as the cavitary lesion. Rate was not compared to the CT of the chest done during his last admission. There was some measurements done, and the measurement on the most recent CT seems smaller compared to the measurements done on his first CAT scan. During the last admission, his HIV testing came back positive. Patient has been with the current girlfriend and the last 10 years, although he' s had other sexual partners. He denies any IV drug use. I spoke with the girlfriend, and she stated she was tested HIV negative several months ago. Infectious disease consultation has been requested to evaluate the patient. Notes reviewed Afebrile No new complaint Pulmonary evaluation noted Antibiotics Current Medications Doxycycline Bactrim Zyvox Medications (Trade) Dose Ordered Sig/Carlos Eduardo Route Start Time Stop Time Status Last Admin (NS Flush) 2 ml UNSCH PRN IV FLUSH 02/19/17 13:15 (NS Flush) 2 ml BID IV FLUSH 02/19/17 21:00 02/20/17 20:55 (Narcan Inj) 0.4 mg UNSCH PRN IV PUSH 02/19/17 13:15 Levofloxacin/ Dextrose 150 ml @ 100 mls/hr Q24H IV 02/20/17 18:00 02/20/17 18:28 (Zyvox) 600 mg Q12HR PO 02/19/17 21:00 02/20/17 20:56 (Folate) 1 mg DAILY PO 02/20/17 09:00 02/25/17 08:59 02/20/17 09:40 (Vitamin B1) 100 mg DAILY PO 02/20/17 09:00 02/20/17 09:40 (Theragran M Tab) 1 tab DAILY PO 02/20/17 09:00 02/25/17 08:59 02/20/17 09:40 (Romazicon Inj) 0.2 mg Q1M PRN IV PUSH 02/19/17 20:00 (Ativan) 1 mg Q4H PRN PO 02/19/17 20:00 (Ativan) 2 mg Q2H PRN PO 02/19/17 19:56 Non-Formulary Medication LORAZEPAM 2 MG IV Q 2 HO... Q2H PRN IV 02/19/17 21:00 Non-Formulary Medication LORAZEPAM 2 MG IV Q 1 HO... Q1H PRN IV 02/19/17 21:00 Non-Formulary Medication LORAZEPAM 2 MG IV Q 15 [place]... Q15M PRN IV 02/19/17 20:45 ([place] 5-325 Mg) 1 tab Q4H PRN PO 02/19/17 20:15 02/19/17 21:28 (Vibratab) 100 mg Q12HR PO 02/20/17 14:00 02/20/17 20:56 (Bactrim Ds 800-160 Mg) 1 tab Q12HR PO 02/20/17 21:00 02/20/17 20:56 Dextrose/Sodium Chloride 1,000 ml @ 0 mls/hr Q0M IV 02/20/17 20:00 02/20/17 21:00 (Ambien) 5 mg HS PRN PO 02/20/17 23:15 02/20/17 23:47 Lactated Ringer's 1,000 ml @ 30 mls/hr Q24H PRN IV 02/20/17 23:45 02/23/17 23:44 Sodium Chloride 500 ml @ 30 mls/hr [id number] PRN IV 02/20/17 23:45 02/23/17 23:44 (Betadine 5% Antisepsis Kit) 1 applic DINING ROOM CASHIER PRN EACH NARE 02/20/17 23:45 02/23/17 23:44 (Chlorhexidine 2% Cloth) 3 pack DINING ROOM CASHIER PRN TOPICAL 02/20/17 23:45 02/23/17 23:44 Lines PIV Past Medical History Newly Dx HIV Allergies: Coded Allergies: No Known Allergies (Verified Allergy, Unknown, 02/19/17) Objective . Vital Signs Date Time Temp Pulse Resp B/P (MAP) Pulse Ox O2 Delivery O2 Flow Rate FiO2 02/21/17 04:00 77 02/21/17 04:00 98.3 90 21 91/55 (67) 95 02/21/17 00:00 77 02/21/17 00:00 97.8 89 19 112/66 (81) 94 02/20/17 20:00 98.0 95 19 115/58 (77) 96 02/20/17 20:00 90 02/20/17 20:00 Room Air 02/20/17 16:00 97.3 81 20 122/73 (89) 98 02/20/17 12:00 98.3 79 20 110/66 (81) 98 . Laboratory Tests Test 02/19/17 11:35 02/20/17 05:50 02/20/17 19:54 White Blood Count 9.4 TH/MM3 6.9 TH/MM3 6.4 TH/MM3 Red Blood Count 3.00 MIL/MM3 2.81 MIL/MM3 2.76 MIL/MM3 Hemoglobin 9.9 GM/DL 9.3 GM/DL 8.9 GM/DL Hematocrit 28.6 % 26.8 % 26.1 % Mean Corpuscular Volume 95.5 FL 95.2 FL 94.5 FL Mean Corpuscular Hemoglobin 33.1 PG 32.9 PG 32.2 PG Mean Corpuscular Hemoglobin Concent 34.7 % 34.6 % 34.1 % Red Cell Distribution Width 12.4 % 12.8 % 12.7 % Platelet Count 473 TH/MM3 437 TH/MM3 450 TH/MM3 Mean Platelet Volume 6.8 FL 6.9 FL 6.9 FL Neutrophils (%) (Auto) 73.3 % 69.8 % 62.4 % Lymphocytes (%) (Auto) 18.6 % 19.3 % 25.8 % Monocytes (%) (Auto) 5.9 % 6.4 % 6.4 % Eosinophils (%) (Auto) 1.6 % 3.9 % 4.2 % Basophils (%) (Auto) 0.6 % 0.6 % 1.2 % Neutrophils # (Auto) 6.9 TH/MM3 4.8 TH/MM3 4.0 TH/MM3 Lymphocytes # (Auto) 1.7 TH/MM3 1.3 TH/MM3 1.7 TH/MM3 Monocytes # (Auto) 0.6 TH/MM3 0.4 TH/MM3 0.4 TH/MM3 Eosinophils # (Auto) 0.1 TH/MM3 0.3 TH/MM3 0.3 TH/MM3 Basophils # (Auto) 0.1 TH/MM3 0.0 TH/MM3 0.1 TH/MM3 CBC Comment DIFF FINAL DIFF FINAL DIFF FINAL Differential Comment Laboratory Tests Test 02/19/17 11:35 02/20/17 05:50 02/21/17 06:58 Blood Urea Nitrogen 5 MG/DL 6 MG/DL Creatinine 0.84 MG/DL 0.80 MG/DL Random Glucose 95 MG/DL 100 MG/DL Calcium Level 8.2 MG/DL 7.9 MG/DL Magnesium Level 1.9 MG/DL Sodium Level 134 MEQ/L 133 MEQ/L Potassium Level 3.7 MEQ/L 4.0 MEQ/L Chloride Level 100 MEQ/L 100 MEQ/L Carbon Dioxide Level 25.9 MEQ/L 25.5 MEQ/L Anion Gap 8 MEQ/L 8 MEQ/L Estimat Glomerular Filtration Rate 117 ML/MIN 124 ML/MIN B-Type Natriuretic Peptide 113 PG/ML Total Bilirubin 0.1 MG/DL Direct Bilirubin 0.1 MG/DL Indirect Bilirubin 0.0 MG/DL Aspartate Amino Transf (AST/SGOT) 50 U/L Alanine Aminotransferase (ALT/SGPT) 55 U/L Alkaline Phosphatase 72 U/L Total Protein 6.4 GM/DL Albumin 1.3 GM/DL Microbiology Date/Time Source Procedure Growth Status 02/19/17 11:35 Blood Peripheral Aerobic Blood Culture - Preliminary NO GROWTH IN 1 DAY Resulted 02/19/17 11:35 Blood Peripheral Anaerobic Blood Culture - Preliminary NO GROWTH IN 1 DAY Resulted 02/19/17 11:30 Blood Peripheral Aerobic Blood Culture - Preliminary NO GROWTH IN 1 DAY Resulted 02/19/17 11:30 Blood Peripheral Anaerobic Blood Culture - Preliminary NO GROWTH IN 1 DAY Resulted Imaging Last Impressions Chest X-Ray 02/19/17 1131 Signed Impressions: Service Date/Time: Sunday, February 19, 2017 12:28 - CONCLUSION: Persistent bilateral airspace disease with no significant improvement. Ramon Hooper MD Lower Extremity Ultrasound 02/19/17 0000 Signed Impressions: Service Date/Time: Sunday, February 19, 2017 11:37 - CONCLUSION: 1. No evidence of deep venous thrombosis within the lower extremities. 2. Nonspecific bilateral inguinal lymphadenopathy. El Thibodeaux MD CT Angiography 02/19/17 0000 Signed Impressions: Service Date/Time: Sunday, February 19, 2017 16:46 - CONCLUSION: 1. No evidence of pulmonary embolism 2. Extensive consolidating airspace disease in both upper lobes with underlying airway disease. 3. 3.6 cm cavity has developed within the right upper lobe. 4. Early peribronchial disease in the right lower lobe. Ramon Hooper MD Physical Exam GENERAL: Patient is a thin, well-developed male, awake and alert, not in respiratory distress. SKIN: Warm and dry. No generalized rash. HEAD: Atraumatic. Normocephalic. No temporal wasting, or tenderness. EYES: [place] conjunctiva. No petechia or hemorrhage. Pupils equal, round and reactive to light. Extraocular movements full and intact. No scleral icterus. No injection or drainage. EARS, NOSE AND THROAT: Nose without bleeding or purulent nasal discharge. No sinus tenderness. Mucous membranes pink and moist. No oral lesions noted. No exudate. No oral thrush. Has poor dentition NECK: Trachea midline. Supple and not tender, no meningeal signs CARDIOVASCULAR: Regular rate and rhythm. No murmurs, rubs or gallops heard RESPIRATORY: Decreased breath sounds bilaterally, no wheezing or rhonchi. Has decreased vocal fremitus both upper lung bethea ABDOMEN: Soft, flat, non-tender, mildly distended. Bowel sounds present and normoactive. No guarding. No rebound. No organomegaly. EXTREMITIES: No clubbing, cyanosis, or edema. No joint effusion, has good ROM. No calf tenderness. Well perfused and warm. NEUROLOGICAL: Awake and alert. Cranial nerves grossly intact. Motor grossly within normal limits. PSYCHIATRIC: Normal affect, calm and cooperative. LINE: No evidence of infection Assessment & Plan Remarks IMPRESSION Bilateral PNA, with cavitary component RUL - sputum (+) MRSA - ?post influenza MRSA PNA - TB testing have been negative - ?risks for unusual pathogens Newly Dx HIV, CD4 counts pending RECOMMENDATION Continue Zyvox for now - follow CBC Doxycycline and Bactrim for PNA - will use this on D/C to treat his cavitary PNA , and plan 4-6 weeks total - he will need to get assistance in obtaining these Abx and will need to ask CM to assist with obtaining Abx prior to D/C Check CD4 counts Pulmonary deciding on bronchoscopy Monitor progress Will determine course of Abx and timing for D/C Dr Rojas available if needed this Irma Linn MD Feb 21, 2017 09:19
[2017-02-21] MEDS ORDERED: DO NOT ADM ANY ANTICOAGULANT DRUGS PRN (12:22)
[2017-02-21] MEDS ORDERED: *morphine SULFATE 8 MG/ML PERIprocedure ONLY ONE (12:27)
[2017-02-21] MEDS ORDERED: *RESP: ALBUTEROL 2.5 MG/3 ML NEB (PRN) PERIprocedural Use ONLY NEB ONE (12:36)
[2017-02-21] MEDS ORDERED: RESP: ALBUTEROL 2.5 MG/3 ML NEB (PRN) NEB (12:45)
--- NOTE | 2017-02-21 13:00 | RADRPT ---
EXAM DATE/TIME: 02/21/2017 12:39 [facility] COMPARISON: CHEST SINGLE AP, February 19, 2017, 12:28. INDICATIONS : Post bronchoscopy, cough. MEDICAL HISTORY : None. SURGICAL HISTORY : None. ENCOUNTER: Subsequent ACUITY: 1 week PAIN SCORE: 0/10 LOCATION: Bilateral chest FINDINGS: No pneumothorax is noted. There is significant alveolar consolidation of the right upper lung field. There has been slight interval improvement of the left lung consolidation compared to previous examin ation with moderate residual consolidation in the left upper lung field. CONCLUSION: 1. No pneumothorax. 2. Some improved aeration of the left lung infiltrate with moderate residual consolidation in the lef t upper lung field. 3. Persistent alveolar consolidation of the right upper lung field. El Thibodeaux MD on February 21, 2017 at 12:56 Board Certified Radiologist. This report was verified electronically.
[2017-02-21] MEDS: SULFAMETHOXAZOLE-TRIMETHOPRIM DS 800-160 MG TAB PO SCH ×2 (14:13→21:45)
[2017-02-21] MEDS: LINEZOLID 600 MG TAB PO SCH ×2 (14:13→21:45)
[2017-02-21] MEDS: THIAMINE HCL 100 MG TAB PO SCH (14:13)
[2017-02-21] MEDS: FOLIC ACID 1 MG TAB PO SCH (14:13)
[2017-02-21] MEDS: MULTIVITAMINS/MINERALS THERAPEUTIC TAB PO SCH (14:13)
[2017-02-21] MEDS: DOXYCYCLINE HYCLATE 100 MG TAB PO SCH ×2 (14:13→21:45)
--- NOTE | 2017-02-21 14:16 | HHI.PR ---
Subjective Remarks Follow up pneumonia. Patient just returned from bronchoscopy. Some dyspnea, cough. No chest pain. Objective Vitals Vital Signs Date Time Temp Pulse Resp B/P (MAP) Pulse Ox O2 Delivery O2 Flow Rate FiO2 02/21/17 13:00 90 20 99/63 (75) 98 Nasal Cannula 2 02/21/17 12:45 95 26 103/66 (78) 100 Aerosol Mask 02/21/17 12:23 97.9 107 24 109/65 (80) 98 Nasal Cannula 4 02/21/17 08:01 98.3 71 16 116/73 (87) 98 02/21/17 04:00 77 02/21/17 04:00 98.3 90 21 91/55 (67) 95 02/21/17 00:00 77 02/21/17 00:00 97.8 89 19 112/66 (81) 94 02/20/17 20:00 98.0 95 19 115/58 (77) 96 02/20/17 20:00 90 02/20/17 20:00 Room Air 02/20/17 16:00 97.3 81 20 122/73 (89) 98 I/O 02/20/17 02/20/17 02/20/17 02/21/17 02/21/17 02/21/17 07:00 15:00 23:00 07:00 15:00 23:00 Intake Total 720 ml 0 ml 100 ml Balance 720 ml 0 ml 100 ml Intake Oral 720 ml 0 ml Other 100 ml # Voids 2 5 2 # Bowel Movements 1 0 1 Result Diagram: 02/20/17 19502/20/17 0550 Imaging Last Impressions Chest X-Ray 02/21/17 0000 Signed Impressions: Service Date/Time: Tuesday, February 21, 2017 12:39 - CONCLUSION: 1. No pneumothorax. 2. Some improved aeration of the left lung infiltrate with moderate residual consolidation in the left upper lung field. 3. Persistent alveolar consolidation of the right upper lung field. El Thibodeaux MD Lower Extremity Ultrasound 02/19/17 0000 Signed Impressions: Service Date/Time: Sunday, February 19, 2017 11:37 - CONCLUSION: 1. No evidence of deep venous thrombosis within the lower extremities. 2. Nonspecific bilateral inguinal lymphadenopathy. El Thibodeaux MD CT Angiography 02/19/17 0000 Signed Impressions: Service Date/Time: Sunday, February 19, 2017 16:46 - CONCLUSION: 1. No evidence of pulmonary embolism 2. Extensive consolidating airspace disease in both upper lobes with underlying airway disease. 3. 3.6 cm cavity has developed within the right upper lobe. 4. Early peribronchial disease in the right lower lobe. Ramon Hooper MD Objective Remarks General: No acute distress. Heart: Regular rate and rhythm. No murmur. Lungs: Clear to auscultation bilaterally. No wheezes, rales, or rhonchi. Breathing is nonlabored. Abdomen: Soft, nontender, nondistended. Extremities: Trace bilateral lower extremity edema. Psych: Alert and oriented. Procedures 02/21/17 bronchoscopy Urinary Catheter: No Vascular Central Line Catheter: No A/P Assessment and Plan 1. Pneumonia with right lung cavitary lesion: Patient was noncompliant with outpatient antibiotics. Infectious disease reconsult in. Antibiotics restarted. Supplemental oxygen as needed. Appreciate pulmonology recommendations. S/P bronchoscopy. 2. Bilateral lower extremity edema: Echocardiogram ordered. CTA shows no evidence of pulmonary embolus. Lower extremity ultrasound was negative for DVT. 3. DVT prophylaxis: Lovenox. Discharge Planning The patient will need assistance with antibiotics upon discharge. Case management to assist with discharge planning. Nick Fermin MD Feb 21, 2017 14:16
--- NOTE | 2017-02-21 14:46 | ECHRPT ---
Indication: CHF CONCLUSIONS Normal left ventricular size. Mild concentric left ventricular hypertrophy. The left ventricular systolic function is normal with an estimated ejection fraction in the range of 55-60%. Normal wall motion. The left atrial size is mildly dilated. Trace mitral valve regurgitation. There is trace tricuspid valve regurgitation. The estimated pulmonary arterial pressure is 37.2 mmHg. BP: 119 / 77 HR: 68 Rhythm: Sinus MEASUREMENTS (Male / Female) Normal Values Technical Quality:Fair 2D ECHO LV Diastolic Diameter PLAX 5.3 cm 4.2 - 5.9 / 3.9 - 5.3 cm LV Systolic Diameter PLAX 4.0 cm IVS Diastolic Thickness 1.0 cm 0.6 - 1.0 / 0.6 - 0.9 cm LVPW Diastolic Thickness 1.0 cm 0.6 - 1.0 / 0.6 - 0.9 cm LV Relative Wall Thickness 0.4 RV Internal Dim ED PLAX 3.0 cm LVOT Diameter 2.1 cm Aortic Root Diameter 3.3 cm LA Systolic Diameter LX 3.3 cm 3.0 - 4.0 / 2.7 - 3.8 cm M-MODE AV Cusp Separation MM 2.2 cm DOPPLER AV Peak Velocity 146.0 cm/s AV Peak Gradient 8.5 mmHg AV Mean Gradient 4.0 mmHg AV Velocity Time Integral 27.1 cm LVOT Peak Velocity 105.0 cm/s LVOT Peak Gradient 4.4 mmHg LVOT Velocity Time Integral 20.7 cm LVOT Cardiac Index 2610.5 cm/minm AV Area Cont Eq vti 2.6 cm AV Area Cont Eq pk 2.5 cm Mitral E Point Velocity 77.0 cm/s Mitral A Point Velocity 77.5 cm/s Mitral E to A Ratio 1.0 LV E' Lateral Velocity 19.6 cm/s Mitral E to LV E' Lateral Ratio 3.9 LV E' Septal Velocity 16.7 cm/s Mitral E to LV E' Septal Ratio 4.6 TR Peak Velocity 261.0 cm/s TR Peak Gradient 27.2 mmHg Right Atrial Pressure 10.0 mmHg Pulmonary Artery Systolic Pressu 37.2 mmHg Right Ventricular Systolic Press 37.2 mmHg PV Peak Velocity 77.5 cm/s PV Peak Gradient 2.4 mmHg FINDINGS LEFT VENTRICLE Normal left ventricular size. Mild concentric left ventricular hypertrophy. The left ventricular systolic function is normal with an estimated ejection fraction in the range of 55-60%. Normal wall motion. RIGHT VENTRICLE Normal right ventricular size and systolic function. LEFT ATRIUM The left atrial size is mildly dilated. RIGHT ATRIUM The right atrial size is normal. ATRIAL SEPTUM Normal atrial septal thickness without atrial level shunting by limited color doppler interrogation. AORTA The aortic root and proximal ascending aorta are normal in size on limited imaging. MITRAL VALVE Trace mitral valve regurgitation. AORTIC VALVE Trileaflet aortic valve. No aortic valve stenosis or regurgitation. TRICUSPID VALVE There is trace tricuspid valve regurgitation. The estimated pulmonary arterial pressure is 37.2 mmHg. PULMONARY VALVE Trivial pulmonary valve regurgitation. VESSELS The inferior vena cava is normal in size. PERICARDIUM No pericardial effusion. Sebastián Rosa MD (Electronically Signed) Final Date:21 February 2017 14:45
[2017-02-21] MEDS: LEVOFLOXACIN 750 MG PREMIX INJ 150 ML IV SCH (17:42)
--- NOTE | 2017-02-21 18:42 | MP ---
cc: Radha CUNNINGHAM M.D. DATE OF SURGERY 02/21/17 PROCEDURE Fiberoptic bronchoscopy with biopsy brushings and washings. PREOPERATIVE DIAGNOSIS Cavitary lung infiltrates. POSTOPERATIVE DIAGNOSIS Cavitary lung infiltrates. ANESTHESIA General SURGEON Dr. Lore Cunningham. PROCEDURE AND FINDINGS The patient was intubated under general anesthesia. Following this the Olympus IT 180 bronchoscope was used to visualize bronchi. The scope was then advanced via the endotracheal tube and the trachea and priscilla were visualized and they were normal. The scope was then advanced towards the right main stem and right upper lobe segmental bronchi. These bronchi demonstrated moderate endobronchitis with mucoid secretions and mucosal edema. Brushings were done from here for cytology and micro and biopsies were done from here as well. Mild bleeding was observed controlled with saline washings. Saline lavage was carried out. The scope was then advanced towards the right middle lobe segmental bronchi. These bronchi demonstrated mild endobronchitis with mucoid secretions and these were suctioned out. No endobronchial masses were seen. Next, the right lower lobe segmental bronchi were visualized which demonstrated mild endobronchitis with mucoid secretions. These were suctioned out and saline washings were done. The scope was then withdrawn. The scope was advanced towards the left main stem and left upper lobe segmental bronchi. These bronchi demonstrated mild endobronchitis and mucoid secretions, but no endobronchial lesions were seen. Next, the left lower lobe segmental bronchi were visualized which demonstrated mild endobronchitis with mucoid secretions and there were no endobronchial lesions seen here. Saline washings were done. The procedure was then terminated. The patient tolerated the procedure well. MD MICHAEL Giang/ /12:11 PM /6:36 PM
[2017-02-21] MEDS: ZOLPIDEM TARTRATE 5 MG TAB PO PRN (23:57)
[2017-02-22] VITALS (8 sets, daily range): BP systolic 107–123; BP diastolic 55–71; PULSE 71–110; RESP 16–20; TEMP 97.4–98.9; O2SAT 97–99
[2017-02-22] MEDS: LINEZOLID 600 MG TAB PO SCH ×2 (09:20→21:29)
[2017-02-22] MEDS: THIAMINE HCL 100 MG TAB PO SCH (09:21)
[2017-02-22] MEDS: DOXYCYCLINE HYCLATE 100 MG TAB PO SCH ×2 (09:21→21:29)
[2017-02-22] MEDS: MULTIVITAMINS/MINERALS THERAPEUTIC TAB PO SCH (09:21)
[2017-02-22] MEDS: SULFAMETHOXAZOLE-TRIMETHOPRIM DS 800-160 MG TAB PO SCH ×2 (09:21→21:29)
[2017-02-22] MEDS: FOLIC ACID 1 MG TAB PO SCH (09:21)
[2017-02-22] MEDS: SODIUM CHLORIDE 0.9% FLUSH 10 ML FLUSH IV FLUSH SCH ×2 (09:21→21:29)
[2017-02-22 09:22] LABS: AUTOMATED NEUTROPHIL # 2.2 TH/MM3 (1.8-7.7); BASOPHIL # 0.1 TH/MM3 (0-0.2); BASOPHIL % 1.3 % (0.0-2.0); EOSINOPHIL # 0.1 TH/MM3 (0-0.4); EOSINOPHIL % 1.9 % (0.0-4.0); HEMATOCRIT 49.7 % (39.0-51.0); HEMO FLAGS DIFF FINAL; LYMPH % 34.5 % (9.0-44.0); LYMPHOCYTE # 1.4 TH/MM3 (1.0-4.8); MEAN CELL VOLUME 97.1 FL (80.0-100.0); MEAN CORPUSCULAR HEMOGLOBIN 32.5 PG (27.0-34.0); MEAN CORPUSCULAR HGB CONC 33.4 % (32.0-36.0); MONO % 7.4 % (0.0-8.0); NEUT % 54.9 % (16.0-70.0); PLATELET COUNT 291 TH/MM3 (150-450); RED BLOOD COUNT 5.12 MIL/MM3 (4.50-5.90); RED CELL DISTRIBUTION WIDTH 13.4 % (11.6-17.2); WHITE BLOOD COUNT 4.1 TH/MM3 (4.0-11.0)
[2017-02-22 09:29] LABS: BICARBONATE 25.9 MEQ/L (21.0-32.0); POTASSIUM 4.4 MEQ/L (3.5-5.1)
[2017-02-22] MEDS ORDERED: PNEUMOCOCCAL POLYVALENT INJ 25 MCG/0.5 ML SYR IM ONE (13:00)
[2017-02-22] MEDS ORDERED: INFLUENZA VIRUS VACCINE (QUADRIVALENT) 0.5 ML SYR IM ONE (13:00)
--- NOTE | 2017-02-22 16:16 | HHI.PR ---
Subjective Remarks Follow-up pneumonia. Denies shortness of breath. Complains of sore throat after bronchoscopy. Discussed with RN Objective Vitals Vital Signs Date Time Temp Pulse Resp B/P (MAP) Pulse Ox O2 Delivery O2 Flow Rate FiO2 02/22/17 16:00 97.9 90 18 111/67 (82) 98 02/22/17 12:03 98.9 84 18 110/62 (78) 98 02/22/17 09:08 98 21 02/22/17 08:00 77 02/22/17 08:00 97.8 80 18 123/55 (77) 98 02/22/17 05:00 98 02/22/17 04:00 76 02/22/17 04:00 97.4 82 16 107/71 (83) 97 02/22/17 00:00 97.6 73 18 115/66 (82) 98 02/22/17 00:00 81 02/21/17 20:00 93 02/21/17 20:00 Room Air 02/21/17 20:00 98.3 85 18 112/61 (78) 96 I/O 02/21/17 02/21/17 02/21/17 02/22/17 02/22/17 02/22/17 07:00 15:00 23:00 07:00 15:00 23:00 Intake Total 0 ml 100 ml 280 ml Balance 0 ml 100 ml 280 ml Intake Oral 0 ml 280 ml Other 100 ml # Voids 2 6 3 # Bowel Movements 1 2 Result Diagram: 02/22/17 0836 02/22/17 0836 Imaging Last Impressions Chest X-Ray 02/21/17 0000 Signed Impressions: Service Date/Time: Tuesday, February 21, 2017 12:39 - CONCLUSION: 1. No pneumothorax. 2. Some improved aeration of the left lung infiltrate with moderate residual consolidation in the left upper lung field. 3. Persistent alveolar consolidation of the right upper lung field. El Thibodeaux MD Lower Extremity Ultrasound 02/19/17 0000 Signed Impressions: Service Date/Time: Sunday, February 19, 2017 11:37 - CONCLUSION: 1. No evidence of deep venous thrombosis within the lower extremities. 2. Nonspecific bilateral inguinal lymphadenopathy. El Thibodeaux MD CT Angiography 02/19/17 0000 Signed Impressions: Service Date/Time: Sunday, February 19, 2017 16:46 - CONCLUSION: 1. No evidence of pulmonary embolism 2. Extensive consolidating airspace disease in both upper lobes with underlying airway disease. 3. 3.6 cm cavity has developed within the right upper lobe. 4. Early peribronchial disease in the right lower lobe. Ramon Hooper MD Objective Remarks General: No acute distress. Skin: Warm and lesions Throat: Clear with no mass or lesions Heart: Regular rate and rhythm. No murmur. Lungs: Clear to auscultation bilaterally. No wheezes, rales, or rhonchi. Breathing is nonlabored. Abdomen: Soft, nontender, nondistended. Extremities: No cyanosis or edema Psych: Alert and oriented. Procedures 02/21/17 bronchoscopy A/P Problem List: (1) Pneumonia ICD Code: J18.9 - Pneumonia, unspecified organism (2) Cavitary lesion of lung ICD Code: J98.4 - Other disorders of lung Assessment and Plan 1. Pneumonia with right lung cavitary lesion: Patient was noncompliant with outpatient antibiotics. He was ruled out for tuberculosis during recent previous admission with negative TB PCR. Bronchoscopy with MRSA on culture continue Zyvox, doxycycline and Bactrim Infectious disease recommended to 4-6 weeks therapy with Bactrim and doxycycline. 2. HIV status. Follow-up CD4 count. [place] precautions discussed with patient and partner 3. Bilateral lower extremity edema: Echocardiogram with LVH ejection fraction 55%. CTA shows no evidence of pulmonary embolus. Lower extremity ultrasound was negative for DVT. 4. Throat discomfort status post bronchoscopy. Supportive treatment. If worse or he develops odynophagia we'll consult GI for EGD and start PPI DVT prophylaxis: SCD and early ambulation Discharge Planning Discharge when cleared by ID and pulmonary Problem Qualifiers (1) Pneumonia: Qualified Codes: J18.9 - Pneumonia, unspecified organism Oracio Austin MD Feb 22, 2017 16:16
[2017-02-22] MEDS ORDERED: PHENOL 1.4% SOLN 180 ML BTL MT PRN (16:30)
[2017-02-22] MEDS ORDERED: SULF1TAB23 PO (17:19)
[2017-02-22] MEDS ORDERED: ZYVO600T PO (17:19)
[2017-02-22] MEDS ORDERED: DOXY100T PO (17:19)
[2017-02-22] MEDS ORDERED: THIA100 PO (17:19)
--- NOTE | 2017-02-22 17:19 | HHI.DCPOC ---
Discharge Care Plan Diagnosis: (1) Cavitary lesion of lung (2) Pneumonia Your Health Problems Are: Difficulty with ADL Exercise Tolerance Goals to Promote Your Health * To prevent worsening of your condition and complications * To maintain your health at the optimal level Directions to Meet Your Goals Take your medications as prescribed Follow your dietary instruction Follow activity as directed Keep your appointments as scheduled Take your immunizations and boosters as scheduled If your symptoms worsen call your PCP, if no PCP go to Urgent Care Center or Emergency Room Smoking is Dangerous to Your Health. Avoid second hand smoke Call the 24-hour hour crisis hotline for domestic abuse at Oracio Austin MD Feb 22, 2017 17:19
[2017-02-22] MEDS: ZOLPIDEM TARTRATE 5 MG TAB PO PRN (21:29)
[2017-02-23] VITALS (10 sets, daily range): BP systolic 101–115; BP diastolic 53–67; PULSE 63–97; RESP 18–20; TEMP 97.6–98.7; O2SAT 95–99
[2017-02-23 07:40] LABS: MAGNESIUM 1.9 MG/DL (1.5-2.5); POTASSIUM 4.8 MEQ/L (3.5-5.1)
[2017-02-23] MEDS: DOXYCYCLINE HYCLATE 100 MG TAB PO SCH ×2 (08:45→22:11)
[2017-02-23] MEDS: FOLIC ACID 1 MG TAB PO SCH (08:45)
[2017-02-23] MEDS: THIAMINE HCL 100 MG TAB PO SCH (08:46)
[2017-02-23] MEDS: SULFAMETHOXAZOLE-TRIMETHOPRIM DS 800-160 MG TAB PO SCH ×2 (08:46→22:12)
[2017-02-23] MEDS: LINEZOLID 600 MG TAB PO SCH ×2 (08:46→22:11)
[2017-02-23] MEDS: MULTIVITAMINS/MINERALS THERAPEUTIC TAB PO SCH (08:46)
[2017-02-23] MEDS: SODIUM CHLORIDE 0.9% FLUSH 10 ML FLUSH IV FLUSH SCH ×2 (08:46→21:00)
--- NOTE | 2017-02-23 14:17 | HHI.PR ---
Subjective Remarks Follow-up pneumonia. He is doing okay tolerating room air. He wants to go home. Discussed with RN and case management Objective Vitals Vital Signs Date Time Temp Pulse Resp B/P (MAP) Pulse Ox O2 Delivery O2 Flow Rate FiO2 02/23/17 12:01 98.7 84 20 108/57 (74) 97 02/23/17 08:00 98.0 63 18 110/63 (79) 99 02/23/17 04:00 67 02/23/17 04:00 97.6 72 20 108/67 (81) 98 02/23/17 04:00 Room Air 02/23/17 00:00 Room Air 02/23/17 00:00 97.8 93 20 101/57 (72) 99 02/23/17 00:00 77 02/22/17 22:17 21 02/22/17 20:00 Room Air 02/22/17 20:00 97.8 71 20 113/65 (81) 99 02/22/17 20:00 90 02/22/17 16:00 97.9 90 18 111/67 (82) 98 02/22/17 16:00 110 I/O 02/22/17 02/22/17 02/22/17 02/23/17 02/23/17 02/23/17 07:00 15:00 23:00 07:00 15:00 23:00 Intake Total 720 ml 800 ml Balance 720 ml 800 ml Intake Oral 720 ml 800 ml # Voids 3 2 6 # Bowel Movements 1 Result Diagram: 02/22/17 0836 02/23/17 0600 Objective Remarks General: No acute distress. Skin: Warm and lesions Throat: Clear with no mass or lesions Heart: Regular rate and rhythm. No murmur. Lungs: Clear to auscultation bilaterally. No wheezes, rales, or rhonchi. Breathing is nonlabored. Abdomen: Soft, nontender, nondistended. Extremities: No cyanosis or edema Psych: Alert and oriented. No significant change in PE from previous Procedures 02/21/17 bronchoscopy A/P Problem List: (1) Pneumonia ICD Code: J18.9 - Pneumonia, unspecified organism (2) Cavitary lesion of lung ICD Code: J98.4 - Other disorders of lung Assessment and Plan 1. Pneumonia with right lung cavitary lesion: Patient was noncompliant with outpatient antibiotics. He was ruled out for tuberculosis during recent previous admission with negative TB PCR. Bronchoscopy with MRSA on culture continue Zyvox, doxycycline and Bactrim Infectious disease recommended to 4-6 weeks therapy with Bactrim and doxycycline. Discussed with case management 2. HIV status. Follow-up CD4 count. [place] precautions discussed with patient and partner 3. Bilateral lower extremity edema: Echocardiogram with LVH ejection fraction 55%. CTA shows no evidence of pulmonary embolus. Lower extremity ultrasound was negative for DVT. 4. Throat discomfort status post bronchoscopy. Supportive treatment. If worse or he develops odynophagia we'll consult GI for EGD and start PPI . This is resolved DVT prophylaxis: SCD and early ambulation Discharge Planning Discharge when cleared by ID and pulmonary Problem Qualifiers (1) Pneumonia: Qualified Codes: J18.9 - Pneumonia, unspecified organism Oracio Austin MD Feb 23, 2017 14:17
[2017-02-23] MEDS: ZOLPIDEM TARTRATE 5 MG TAB PO PRN (22:15)
[2017-02-23 23:52] LABS: CD4/CD8 RATIO 0.3 (0.86-5.00)
[2017-02-24] VITALS: BP 105/61; PULSE 85; RESP 17; TEMP 98; O2SAT 97
[2017-02-24 04:00] VITALS: BP 101/60; PULSE 80; RESP 17; TEMP 98.1; O2SAT 97
[2017-02-24 08:00] VITALS: BP 103/56; PULSE 74; PULSE 85; RESP 20; TEMP 97.4; O2SAT 98
[2017-02-24] MEDS: MULTIVITAMINS/MINERALS THERAPEUTIC TAB PO SCH (09:21)
[2017-02-24] MEDS: FOLIC ACID 1 MG TAB PO SCH (09:21)
[2017-02-24] MEDS: SULFAMETHOXAZOLE-TRIMETHOPRIM DS 800-160 MG TAB PO SCH (09:21)
[2017-02-24] MEDS: THIAMINE HCL 100 MG TAB PO SCH (09:21)
[2017-02-24] MEDS: LINEZOLID 600 MG TAB PO SCH (09:21)
[2017-02-24] MEDS: DOXYCYCLINE HYCLATE 100 MG TAB PO SCH (09:21)
--- NOTE | 2017-02-24 09:31 | HHI.IDPN ---
Subjective Subjective Remarks Patient is a 51-year-old male, who was recently hospitalized February 11 to February 16, and at that time he was found to have a bilateral pneumonia, as well as cavitary pneumonia in the right upper lobe. He tested influenza A+ at that time as well, and the sputum culture grew MRSA. QuantiFERON testing was indeterminate, and TB PCR came back negative. He also had a sputum for AFB that came back negative. He was having fever, cough, and left-sided pleuritic chest pain. Patient improved, and he was discharge on February 16. He was given Levaquin and Zyvox, but apparently the patient could not afford the medication, and never filled the prescription. He was given a coupon for $1 to be able to get the Zyvox, but the patient stated that none of the pharmacy could give it to him. His symptoms were actually improving, and his fevers improved. He is still coughing, but sputum production has improved. Denies any hemoptysis, and he still has some occasional pleuritic chest pain. Patient developed swelling in both lower extremity, so he presented back to the hospital for further evaluation and treatment. Patient has been afebrile. He had a CTA which did not show any pulmonary embolism, but did confirm the presence of bilateral infiltrates as well as the cavitary lesion. Rate was not compared to the CT of the chest done during his last admission. There was some measurements done, and the measurement on the most recent CT seems smaller compared to the measurements done on his first CAT scan. During the last admission, his HIV testing came back positive. Patient has been with the current girlfriend and the last 10 years, although he' s had other sexual partners. He denies any IV drug use. I spoke with the girlfriend, and she stated she was tested HIV negative several months ago. Infectious disease consultation has been requested to evaluate the patient. Notes reviewed Afebrile No new complaint Had bronch done 02/21 Bronch C/S MRSA, neg AFB Lung biopsy pending CD4 count 350 Antibiotics Current Medications Doxycycline Bactrim Zyvox Medications (Trade) Dose Ordered Sig/Carlos Eduardo Route Start Time Stop Time Status Last Admin (NS Flush) 2 ml UNSCH PRN IV FLUSH 02/19/17 13:15 (NS Flush) 2 ml BID IV FLUSH 02/19/17 21:00 02/23/17 21:00 (Narcan Inj) 0.4 mg UNSCH PRN IV PUSH 02/19/17 13:15 (Zyvox) 600 mg Q12HR PO 02/19/17 21:00 02/24/17 09:21 (Folate) 1 mg DAILY PO 02/20/17 09:00 02/25/17 08:59 02/24/17 09:21 (Vitamin B1) 100 mg DAILY PO 02/20/17 09:00 02/24/17 09:21 (Theragran M Tab) 1 tab DAILY PO 02/20/17 09:00 02/25/17 08:59 02/24/17 09:21 (Romazicon Inj) 0.2 mg Q1M PRN IV PUSH 02/19/17 20:00 (Ativan) 1 mg Q4H PRN PO 02/19/17 20:00 (Ativan) 2 mg Q2H PRN PO 02/19/17 19:56 Non-Formulary Medication LORAZEPAM 2 MG IV Q 2 HO... Q2H PRN IV 02/19/17 21:00 Non-Formulary Medication LORAZEPAM 2 MG IV Q 1 HO... Q1H PRN IV 02/19/17 21:00 Non-Formulary Medication LORAZEPAM 2 MG IV Q 15 [place]... Q15M PRN IV 02/19/17 20:45 (Leonardo 5-325 Mg) 1 tab Q4H PRN PO 02/19/17 20:15 02/19/17 21:28 (Vibratab) 100 mg Q12HR PO 02/20/17 14:00 02/24/17 09:21 (Bactrim Ds 800-160 Mg) 1 tab Q12HR PO 02/20/17 21:00 02/24/17 09:21 (Ambien) 5 mg HS PRN PO 02/20/17 23:15 02/23/17 22:15 (Chloraseptic [place]) 2 spray Q2H PRN MT 02/22/17 16:30 02/22/17 21:29 Lines PIV Past Medical History Newly Dx HIV Allergies: Coded Allergies: No Known Allergies (Verified Allergy, Unknown, 02/19/17) Objective . Vital Signs Date Time Temp Pulse Resp B/P (MAP) Pulse Ox O2 Delivery O2 Flow Rate FiO2 02/24/17 08:00 97.4 74 20 103/56 (72) 98 02/24/17 04:00 98.1 80 17 101/60 (74) 97 02/24/17 00:00 98.0 85 17 105/61 (76) 97 02/24/17 00:00 Room Air 02/23/17 22:18 93 02/23/17 20:00 Room Air 02/23/17 20:00 98.1 75 19 103/53 (70) 95 02/23/17 19:43 93 02/23/17 16:03 98.1 88 18 115/58 (77) 98 02/23/17 16:00 75 02/23/17 12:01 98.7 84 20 108/57 (74) 97 02/23/17 12:00 95 . Laboratory Tests Test 02/23/17 06:00 Blood Urea Nitrogen 9 MG/DL Creatinine 1.01 MG/DL Random Glucose 84 MG/DL Calcium Level 8.3 MG/DL Magnesium Level 1.9 MG/DL Sodium Level 132 MEQ/L Potassium Level 4.8 MEQ/L Chloride Level 100 MEQ/L Carbon Dioxide Level 24.0 MEQ/L Anion Gap 8 MEQ/L Estimat Glomerular Filtration Rate 94 ML/MIN Microbiology Date/Time Source Procedure Growth Status 02/21/17 12:06 Bronchial Washings Other Acid Fast Stain - Final NO ACID FAST BACILLI SEEN Resulted 02/21/17 12:06 Bronchial Washings Other Mycobacterial Culture Pending Resulted 02/21/17 12:06 Bronchial Washings Other Fungal Smear - Final NO FUNGAL ELEMENTS SEEN. Resulted 02/21/17 12:06 Bronchial Washings Other Fungal Culture Pending Resulted 02/21/17 12:06 Bronchial Washings Other Gram Stain - Final Complete 02/21/17 12:06 Bronchial Culture - Final S. Aureus Mrsa Complete Imaging Chest X-Ray 02/21/17 0000 Signed Impressions: Service Date/Time: Tuesday, February 21, 2017 12:39 - CONCLUSION: 1. No pneumothorax. 2. Some improved aeration of the left lung infiltrate with moderate residual consolidation in the left upper lung field. 3. Persistent alveolar consolidation of the right upper lung field. El Thibodeaux MD Lower Extremity Ultrasound 02/19/17 0000 Signed Impressions: Service Date/Time: Sunday, February 19, 2017 11:37 - CONCLUSION: 1. No evidence of deep venous thrombosis within the lower extremities. 2. Nonspecific bilateral inguinal lymphadenopathy. El Thibodeaux MD CT Angiography 02/19/17 0000 Signed Impressions: Service Date/Time: Sunday, February 19, 2017 16:46 - CONCLUSION: 1. No evidence of pulmonary embolism 2. Extensive consolidating airspace disease in both upper lobes with underlying airway disease. 3. 3.6 cm cavity has developed within the right upper lobe. 4. Early peribronchial disease in the right lower lobe. Ramon Hooper MD Chest X-Ray 02/19/17 1131 Signed Impressions: Service Date/Time: Sunday, February 19, 2017 12:28 - CONCLUSION: Persistent bilateral airspace disease with no significant improvement. Ramon Hooper MD Lower Extremity Ultrasound 02/19/17 0000 Signed Impressions: Service Date/Time: Sunday, February 19, 2017 11:37 - CONCLUSION: 1. No evidence of deep venous thrombosis within the lower extremities. 2. Nonspecific bilateral inguinal lymphadenopathy. El Thibodeaux MD CT Angiography 02/19/17 0000 Signed Impressions: Service Date/Time: Sunday, February 19, 2017 16:46 - CONCLUSION: 1. No evidence of pulmonary embolism 2. Extensive consolidating airspace disease in both upper lobes with underlying airway disease. 3. 3.6 cm cavity has developed within the right upper lobe. 4. Early peribronchial disease in the right lower lobe. Ramon Hooper MD Physical Exam GENERAL: awake and alert, not in respiratory distress. SKIN: Warm and dry. No generalized rash. HEAD: Atraumatic. Normocephalic. No temporal wasting, or tenderness. EYES: [place] conjunctiva. No petechia or hemorrhage. Pupils equal, round and reactive to light. Extraocular movements full and intact. No scleral icterus. No injection or drainage. EARS, NOSE AND THROAT: Nose without bleeding or purulent nasal discharge. No sinus tenderness. No oral lesions noted. No exudate. No oral thrush. Has poor dentition NECK: Trachea midline. Supple and not tender, no meningeal signs CARDIOVASCULAR: Regular rate and rhythm. No murmurs, rubs or gallops heard RESPIRATORY: Decreased breath sounds bilaterally, no wheezing or rhonchi. Has decreased vocal fremitus both upper lung bethea ABDOMEN: Soft, flat, non-tender, mildly distended. Bowel sounds present and normoactive. No guarding. No rebound. No organomegaly. EXTREMITIES: No clubbing, cyanosis, or edema. No joint effusion, has good ROM. No calf tenderness. Well perfused and warm. NEUROLOGICAL: Awake and alert. Cranial nerves grossly intact. Motor grossly within normal limits. PSYCHIATRIC: Normal affect, calm and cooperative. LINE: No evidence of infection Assessment & Plan Remarks IMPRESSION Bilateral PNA, with cavitary component RUL - sputum (+) MRSA - ?post influenza MRSA PNA - TB testing have been negative - ?risks for unusual pathogens Newly Dx HIV, CD4 counts 350 RECOMMENDATION Continue Zyvox for now while in hospital - follow CBC Doxycycline and Bactrim for PNA - will use this on D/C to treat his cavitary PNA , and plan 4-6 weeks total - he will need to get assistance in obtaining these Abx and will need to ask CM to assist with obtaining Abx prior to D/C He will [facility] Follow biopsy esults Monitor progress Irma Linn MD Feb 24, 2017 09:31
[2017-02-24 11:55] VITALS: BP 99/55; PULSE 91; RESP 18; TEMP 98; O2SAT 98
--- NOTE | 2017-02-24 13:12 | HHI.DS ---
Discharge Summary Admission Date Feb 19, 2017 at 13:12 Discharge Date: Feb 24, 2017 Admitting Diagnosis worsening pneumonia, non compliant, HIV (1) Pneumonia ICD Code: J18.9 - Pneumonia, unspecified organism Diagnosis: [place] (2) Cavitary lesion of lung ICD Code: J98.4 - Other disorders of lung Procedures 02/21/17 bronchoscopy Brief History - From Admission History from patient, ER to medication, and review of medical records. was discharged on friday after treatment of bilateral pneumonia was prescribed levo and linezolid cannot afford it- it is $800 Also reports of chest pains today.mostly when he coughs could hardly breath since discharge then bilateral LE swells up, so came back to hospital has been coughing a lot- just mild whitish yellowish color- has it by bedside specimen cup, no blood threw up last night diarrhea- but only about twice a day, smells worse than normal Apart From the above, patient denies any other symptoms CBC/BMP: 02/22/17 0836 02/23/17 0600 Significant Findings Laboratory Tests Test 02/22/17 08:36 02/23/17 06:00 Mean Platelet Volume 6.5 FL (7.0-11.0) Blood Urea Nitrogen 5 MG/DL (7-18) Calcium Level 8.2 MG/DL (8.5-10.1) 8.3 MG/DL (8.5-10.1) Sodium Level 135 MEQ/L (136-145) 132 MEQ/L (136-145) PE at Discharge General: No acute distress. Skin: Warm and lesions Throat: Clear with no mass or lesions Heart: Regular rate and rhythm. No murmur. Lungs: Clear to auscultation bilaterally. No wheezes, rales, or rhonchi. Breathing is nonlabored. Abdomen: Soft, nontender, nondistended. Extremities: No cyanosis or edema Psych: Alert and oriented. No significant change in PE from previous Hospital Course 1. Pneumonia with right lung cavitary lesion: Patient was noncompliant with outpatient antibiotics. He was ruled out for tuberculosis during recent previous admission with negative TB PCR. Bronchoscopy with MRSA on culture continue Zyvox, doxycycline and Bactrim Infectious disease recommended to 4-6 weeks therapy with Bactrim and doxycycline. Discussed with case management 2. HIV status. Follow-up CD4 count 350. [place] precautions discussed with patient and partner 3. Bilateral lower extremity edema: Echocardiogram with LVH ejection fraction 55%. CTA shows no evidence of pulmonary embolus. Lower extremity ultrasound was negative for DVT. 4. Throat discomfort status post bronchoscopy. Supportive treatment. If worse or he develops odynophagia we'll consult GI for EGD and start PPI . This is resolved DVT prophylaxis: SCD and early ambulation Pt Condition on Discharge: Stable Discharge Disposition: Discharge Home Discharge Time: > 30 minutes Discharge Instructions DIET: Follow Instructions for: As Tolerated, No Restrictions Speech Therapy-Diet Recommends: Regular Activities you can perform: Regular-No Restrictions Follow up Referrals: Infectious Disease - 1 Week PCP Follow-up - 1 Week New Medications: Doxycycline Hyclate (Doxycycline Hyclate) 100 Mg Tab 100 MG PO Q12HR for Infection, #84 TAB Linezolid (Zyvox) 600 Mg Tab 600 MG PO Q12HR for Infection, #20 TAB Sulfamethoxazole-Trimethoprim (Sulfamethoxazole-Trimethoprim) 800-160 Mg Tab 1 TAB PO Q12HR for Infection, #84 TAB Thiamine HCl (Gnp Vitamin B-1) 100 Mg Tab 100 MG PO DAILY for Alcohol Detox, #30 TAB Continued Medications: Linezolid (Zyvox) 600 Mg Tab 600 MG PO Q12HR for Infection, #28 TAB Discontinued Medications: Levofloxacin (Levaquin) 750 Mg Tablet 750 MG PO DAILY for Infection, #7 TAB Oracio Austin MD Feb 24, 2017 13:12
--- NOTE | 2017-02-27 18:38 | PQ ---
Physician Query Response Document PATIENT: EVELYN CONCEPCION : 1965 ADMIT DATE: 02/19/2017 1:12 PM DISCH DATE: RESPONDING PROVIDER #: Jean-Pierre QUERY TEXT: HIV Clarification and Associated Conditions HIV (Human immunodeficiency virus) is documented in the medical record. Please specify the type Such as: -- Acquired immune deficiency syndrome [AIDS] -- OVDO-[id number] complex [ARC] -- Symptomatic -- Asymptomatic -- With current or previous HIV-related condition (please specify related condition) -- Exposure to HIV -- Inconclusive serologic evidence of HIV -- Other, please specify Also please include any associated conditions, if applicable. If you have any additional questions/comments and/or concerns, please do not hesitate to reach out to the CDI/Coding Hotline, Ext. [phone]. The patient's Clinical Indicators include: H ID Progress Note 02/24/17 Dr. Linn - IMPRESSION : Bilateral PNA, with cavitary component RUL - sputum (+) MRSA - ?post influenza MRSA PNA - TB testing have been negative - ?risks for unusual pathogens Newly Dx HIV, CD4 counts 350 ID Consult note 02/20/17 Dr. Linn - Will get pulmonary input regarding cavitary PNA randy since he has new Dx HIV, ? He was given Levaquin and Zyvox, but apparently the patient could not afford the medication, and never filled the prescription. He was given a coupon for $1 to be able to get the Zyv ox, but the patient stated that none of the pharmacy could give it to him. Pt. underwent bronchoscopy on 02/21/17 - Refer to Pathology reports for findings. Query created by: Elizabeth Morfin on 02/27/2017 1:39 PM RESPONSE TEXT: Newly diagnosed HIV Electronically signed by: Oracio Austin MD 02/27/2017 6:34 PM
== END 2017-02-24 13:14 | disposition home or self-care (01) | DRG 168 ==
LOC: NEPC 11:03 → NEDA 13:12 → N04A 15:19
PROVIDERS: ADMIT Internal Medicine; ATTEND Internal Medicine
PROC: 0BBC8ZX Excision of Right Upper Lung Lobe, Via Natural or Artificial Opening Endoscopic, Diagnostic (ICD-10-PCS; principal; 2017-02-21)
PROC: 0B9B8ZZ Drainage of Left Lower Lobe Bronchus, Via Natural or Artificial Opening Endoscopic (ICD-10-PCS; 2017-02-21)
PROC: 0B9C8ZZ Drainage of Right Upper Lung Lobe, Via Natural or Artificial Opening Endoscopic (ICD-10-PCS; 2017-02-21)
DX: J15.212 Pneumonia due to Methicillin resistant Staphylococcus aureus (principal); F17.210 Nicotine dependence, cigarettes, uncomplicated; Z21 Asymptomatic human immunodeficiency virus [HIV] infection status; J98.4 Other disorders of lung; Z91.19 Patient's noncompliance with other medical treatment and regimen; F12.90 Cannabis use, unspecified, uncomplicated; R60.0 Localized edema; K08.9 Disorder of teeth and supporting structures, unspecified; Z23 Encounter for immunization
CPT/HCPCS: 31623; 71010; 71275; 80048; 80076; 82948; 83735; 83880; 85025; 85379; 85610; 85730; 86355; 86357; 86359; 86360; 86403; 87015; 87040; 87070; 87102; 87116; 87147; 87186; 87205; 87206; 87493; 88112; 88305; 88312; 90686; 90732; 93005; 93306; 93970; 94640; 96374; J1650; J1956; J2270; J7613; Q2038; Q9967